=== PATIENT | male | born 1955 | race Caucasian/White ===

== ENCOUNTER 2017-05-19 14:38 | Outpatient (RCR) | payer OTHER, SELFPAY ==
[2017-05-19 16:31] LABS: ALB/GLOB Ratio 1.1 RATIO (0.9-2.4); AST(SGOT) 30 U/L (15-37); Alanine Aminotransfer ALT/SGPT 33 U/L (12-78); Albumin, Serum 3.9 g/dL (3.4-5.0); Alkaline Phosphatase 71 U/L (45-117); Anion Gap 5 (5-15); BUN 22 mg/dL (7-18); BUN/Creat Ratio 22.2 RATIO (10-20); Calcium,Total 8.9 mg/dL (8.5-10.1); Chloride 103 mmol/L (98-107); Cholesterol 130 mg/dL (200); Creatinine, Serum 0.99 mg/dL (0.70-1.30); EST Glomerular Filtration Rate 81 mL/min (>60); Est Glom Filt Rate - Afr Amer 98 mL/min (>60); Globulin 3.7 g/dL (2.2-4.2); Glucose 163 mg/dL (70-110); High Density Lipoprotein 29 mg/dL; Potassium 4.1 mmol/L (3.5-5.1); Protein, Total 7.6 g/dL (6.4-8.2); Sodium Level 138 mmol/L (136-145); Triglycerides 412 mg/dL; Uric Acid 4.3 mg/dL (3.5-7.2)
== END 2017-05-19 15:00 | disposition home or self-care (01) ==
LOC: LAB 14:38
PROVIDERS: Family Provider Preventive Medicine Occupational Medicine; PCP Preventive Medicine Occupational Medicine; Visit Provider Internal Medicine Cardiovascular Disease
DX: I10 Essential (primary) hypertension (principal); E78.5 Hyperlipidemia, unspecified; Z12.5 Encounter for screening for malignant neoplasm of prostate; Z87.442 Personal history of urinary calculi
CPT/HCPCS: 36415; 80053; 80061; 84550

== ENCOUNTER 2017-07-23 11:38 | Outpatient (RCR) | payer OTHER, SELFPAY ==
[2017-07-23 12:28] LABS: International Normalized Ratio 3.9
[2017-07-23 12:33] LABS: Cholesterol 138 mg/dL (200); High Density Lipoprotein 34 mg/dL; Triglycerides 242 mg/dL; Very Low Density Lipoprotein 48 mg/dL (5-40)
[2017-07-23 12:50] LABS: Prothrombin Time (Protime)PT. 38.5 SECONDS (11.7-14.9)
== END 2017-07-23 12:00 | disposition home or self-care (01) ==
LOC: LAB 11:38
PROVIDERS: Family Provider Preventive Medicine Occupational Medicine; PCP Preventive Medicine Occupational Medicine; Visit Provider Internal Medicine Cardiovascular Disease
DX: E78.5 Hyperlipidemia, unspecified (principal); Z79.01 Long term (current) use of anticoagulants; Z95.2 Presence of prosthetic heart valve
CPT/HCPCS: 80061; 85610

== ENCOUNTER 2017-11-01 13:43 | Outpatient (RCR) | payer OTHER, SELFPAY ==
[2017-11-01 15:06] LABS: International Normalized Ratio 3.2
== END 2017-11-01 15:00 | disposition home or self-care (01) ==
LOC: LAB 13:43
PROVIDERS: Physician Assistant Medical; Family Provider Preventive Medicine Occupational Medicine; PCP Preventive Medicine Occupational Medicine; Visit Provider Internal Medicine Cardiovascular Disease
DX: Z79.01 Long term (current) use of anticoagulants (principal)
CPT/HCPCS: 36415; 85610

== ENCOUNTER 2018-02-06 09:21 | Day surgery (SDC) | payer MEDICARE, OTHER, SELFPAY ==
--- NOTE | 2018-02-02 09:18 | EKG12_ITS ---
Test Reason : PRE OP Blood Pressure : / mmHG Vent. Rate : 068 BPM Atrial Rate : 068 BPM P-R Int : 194 ms QRS Dur : 092 ms QT Int : 388 ms P-R-T Axes : 062 -32 069 degrees QTc Int : 412 ms Normal sinus rhythm Possible Left atrial enlargement Left axis deviation Abnormal ECG Confirmed by KENDALL LEVINE, GUSTAVO ([id number]), deputy editor in chief ESTELA COVARRUBIAS ([id number]) on 02/06/2018 3:50:14 PM Referred By: Aayush Carnes Confirmed By:GUSTAVO ARGUETA MD
[2018-02-02 09:41] LABS: Hematocrit 44.4 % (40-54); Hemoglobin 15.1 g/dl (13.0-16.5); Mean Corpuscular Hgb 30.4 pg (27.0-32.0); Mean Corpuscular Volume 89.5 fL (80-94); Mean Platelet Vol. 10.3 fl (6.2-12.0); Platelet Count 176 K/mm3 (150-450); RBC Distribution Width CV 13.6 % (11.6-14.6); RBC Distribution Width SD 44.2 fl (35.1-43.9); Red Blood Count 4.96 M/mm3 (4.6-6.2); White Blood Count 5.9 K/mm3 (4.4-11.0)
[2018-02-02 09:43] LABS: Scan Indicated on CBC? Y/N NO
[2018-02-02 10:10] LABS: Anion Gap 8 (5-15); BUN 24 mg/dL (7-18); BUN/Creat Ratio 22.4 RATIO (10-20); Calcium,Total 9.3 mg/dL (8.5-10.1); Chloride 100 mmol/L (98-107); Creatinine, Serum 1.07 mg/dL (0.70-1.30); EST Glomerular Filtration Rate 74 mL/min (>60); Est Glom Filt Rate - Afr Amer 89 mL/min (>60); Glucose 283 mg/dL (74-106); Potassium 4.2 mmol/L (3.5-5.1); Sodium Level 135 mmol/L (136-145)
--- NOTE | 2018-02-06 | LES_PTH ---
PATIENT: PENG BAPTISTE LOC: [facility] U#:[id number] AGE/SX: 63/M ROOM: RE02/06/[address]: Dr. Aayush Carnes MD : [id number] BED: DIS: 02/06/2018 SPEC #: [id number] RECD: 02/06/18 14:11 STATUS: CIRA PHILLIP #: [id number] TODD: 02/06/18 00:[address]: Aayush Carnes DEPT: SURGICAL PATHOLOGY RECD BY: Caroline Mims ENTERED: 02/06/18 14:43 SP TYPE: Lesion OTHR DR: Dr. Benjamin Guzman DO Tissues: A - Skin of external ear, NOS B - Skin of external ear, NOS Procedures: Frozen Section (charge) Frozen Section Add'l ([facility]) Surgery Specimen Level IV Frozen (no charge) Comments: @ Specimen number changed from [id number] to [id number] @ on 02/07/18 at 0748 by RGOOD. HEADER OPERATION: Excision lesion, ear, frozen section PRE-OP DIAGNOSIS: Basal cell carcinoma left ear TISSUE SUBMITTED: A - Lesion left ear helix, long suture - posterior, short suture - inferior, frozen section sent at 1405, B - Additional inferior margin left ear for permanent FROZEN SECTION DIAGNOSIS A. Lesion left ear helix, biopsy: Basal cell carcinoma, completely excised. SJ:luis 02/07/18 MICROSCOPIC DIAGNOSIS A. Lesion left ear helix, excision: Basal cell carcinoma, completely excised. Solar elastosis. See comment. B. Additional inferior margin, left ear, biopsy: Negative for carcinoma. Mild chronic inflammation. See comment. COREY:luis 02/08/18 COMMENT A . Cartilage is also noted in the submitted specimen and not involved by the tumor.. B. Cartilage is also noted in the submitted specimens. Case has been reviewed in consultation with Dr. Monique who concurs with the above diagnosis. IDC:AM MICROSCOPIC DESCRIPTION Slides are reviewed. GROSS DESCRIPTION A - Received fresh for frozen section diagnosis labeled with the patient's name is a specimen designated lesion left ear helix. The specimen consists of a wedge-shaped piece of cruz-white skin measuring 2.3 x 1.3 x 0.8 cm. The specimen is oriented as follows: long stitch - posterior, short stitch - inferior. The specimen is inked as follows: posterior - black, anterior - blue, inferior - yellow, superior - green/orange. The specimen is longitudinally sectioned and submitted entirely for frozen section diagnosis in two cassettes. / :luis 02/06/18 B - Received in fixative is one container labeled with the patient's name and designated additional inferior margin left ear. The specimen consists of a wedge-shaped piece of cruz-white skin measuring 2 x 1 x 0.7 cm. The specimen is inked, serially sectioned and submitted entirely in one cassette. / SJ:luis 02/07/18 TC:0 CPT: 24657 x2, 85788, 76845
[2018-02-06 10:26] VITALS: BP 130/75; PULSE 69; RESP 16; TEMP 36.6; O2SAT 96; BMI 43.8
[2018-02-06 10:46] LABS: Bedside Glucose 192 mg/dL (70-110)
--- NOTE | 2018-02-06 13:45 | DCINST_ITS ---
You will use the following diet at home:: Regular Discharge Activity: Return to Normal Activity Additional Activity Instructions:: Remove dressing tomorrow and discard. Apply antibiotic ointment to the sutures three times per day. Keep the ear dry until Tuesday. Allergies/Adverse Reactions: Allergies fentanyl Allergy (Verified 01/31/18 10:13) HALLUCINATIONS/VERY CONFUSED niacin Allergy (Verified 01/31/18 09:58) SWEATY,AND REAL HOT Penicillins Allergy (Verified 01/31/18 09:58) Unknown Medications to take at Discharge allopurinol 300 mg tablet 300 mg PO QDAY 05/20/17 coenzyme Q10 200 mg capsule 200 mg PO BID cap 05/20/17 magnesium oxide 400 mg (241.3 mg magnesium) tablet 400 mg PO QDAY tab 05/20/17 amlodipine 10 mg tablet 10 mg PO QDAY #90 tab 01/24/18 enoxaparin 120 mg/0.8 mL subcutaneous syringe 120 mg SC Q12H #10 dose 01/24/18 hydrochlorothiazide 25 mg tablet 25 mg PO QDAY #90 tab 01/24/18 lisinopril 40 mg tablet 40 mg PO BID #180 tab 01/24/18 metoprolol succinate ER 200 mg tablet,extended release 24 hr 100 mg PO BID #90 tab 01/24/18 pravastatin 40 mg tablet 40 mg PO QHS #90 tab 01/24/18 Warfarin [Coumadin ([facility])] 5 mg PO FR 01/31/18 Warfarin [Coumadin ([facility])] 8 mg PO SUMOTUWETHSA 01/31/18 Primary Care Physician: Benjamin Guzman DO [Primary Care Provider] - Test Results: Test results from this visit will be discussed in further detail at your follow- up appointment, if applicable.
[2018-02-06 13:55] VITALS: BP 111/68; BP 130/75; PULSE 65; RESP 16; TEMP 36.3; O2SAT 92
[2018-02-06] MEDS: Bacitracin 500 UNITS/GM PACKET (14:30)
[2018-02-06 15:37] VITALS: BP 102/45; BP 130/75; PULSE 70; RESP 16; TEMP 36.4; O2SAT 92
[2018-02-06 15:45] VITALS: BP 104/58; BP 130/75; PULSE 68; RESP 16; O2SAT 94
[2018-02-06 15:50] VITALS: BP 102/67; BP 130/75; PULSE 70; RESP 16; O2SAT 94
--- NOTE | 2018-02-06 15:55 | OP.PCM_ITS ---
Report of Operation Date of Procedure: 02/06/18 Pre-Operative Diagnosis: basal cell carcinoma left ear Post-Operative Diagnosis: same Surgery/Procedure Performed:: Excision left ear basal cell carcinoma. (size of defect 2.3x1.2 cm). Local advancement flap reconstruction (helical advancement flap) Description of Surgical Findings:: frozen section with clear margins Type of Anesthesia:: Local MAC Anesthesiologist: Shayan Evans Specimen's removed: as above Estimated Blood Loss (mL): minimal Description of Procedure: The patient was taken to the operating room on 02/06/18. He was placed in the supine position on the OR table. The left ear was was prepped and draped steriley. 1% lidocaine with epinephrine (1:804160) was injected around the lesion and along the helix on the medial and lateral side. Next, I measured 5 mm margins on each side. I incised the skin with a 15 blade at the margins and carried this down through the cartilage of the helix. Next, I used an 11 blade to make through and through full thickness cuts beneath the lesion, thus removing the helical rim with the specimen. The lesion was marked for orientation with sutures. Next hemostasis was achieved with bipolar cautery. I then made a back cut (full thickness) with an 11 blade to the lobule so as to isolate the helical rim for advancement. I also made a full thickness incision with an 11 blade to the helical root. Next, I removed a W of cartilage and skin with an 11 blade to shorten the anterior posterior dimension of the ear. Hemostasis was achieved with bipolar cautery. I then irrigated the ear with saline. The frozen section had come back with clear margins at this time. Next, I re approximated the W incision and closed this with 4-0 Vicryl. The helical root was advanced and the cartilage was closed with interrupted 4-0 Vicryl. The helical rim was advanced and tacked to the root to re create an intact helical rim. Next, the helical rim was closed by sewing the cartilage to the helical advancement flap rim. The skin was closed posteriorly/medially with a running 6-0 nylon. The skin was closed laterally/anteriorly with a combination of running and interrupted 6-0 Nylon. Bacitracin was applied. A [place] dressing was applied. The patient was then awoken and brought to the recovery room in stable condition. Blood loss minimal, replacement none. Sponge, needle and instrument count were correct at the end of the procedure.
[2018-02-06 16:18] VITALS: BP 130/75
== END 2018-02-06 16:25 | disposition home or self-care (01) ==
LOC: SDC 09:23 → AC 10:07
PROVIDERS: Family Provider Preventive Medicine Occupational Medicine; PCP Preventive Medicine Occupational Medicine; Referring Provider Otolaryngology; Visit Provider Otolaryngology
DX: C44.219 Basal cell carcinoma of skin of left ear and external auricular canal (principal); I10 Essential (primary) hypertension; E78.00 Pure hypercholesterolemia, unspecified; I25.10 Atherosclerotic heart disease of native coronary artery without angina pectoris; H95.41 Postprocedural hemorrhage of ear and mastoid process following a procedure on the ear and mastoid process; Z95.2 Presence of prosthetic heart valve; Z87.891 Personal history of nicotine dependence; Z79.01 Long term (current) use of anticoagulants; Z79.891 Long term (current) use of opiate analgesic; Z79.899 Other long term (current) drug therapy
CPT/HCPCS: 00300; 14060; 36415; 80048; 82962; 85027; 85610; 88305; 88331; 88332; 93005; 99283; J7120

== ENCOUNTER 2018-02-06 23:15 | Emergency (ER) | payer MEDICARE, OTHER, SELFPAY ==
[2018-02-06 23:16] VITALS: BP 133/83; PULSE 70; RESP 16; TEMP 36.7; O2SAT 98; BMI 44.9
[2018-02-07 00:20] LABS: International Normalized Ratio 1.4
--- NOTE | 2018-02-07 00:42 | ED.VIS.GEN ---
History of Present Illness Chief Complaint: Ear Problem Informant: Patient Onset: Today Context: Gradual Onset - after ear surgery Timing: Continuous Quality: oozing/bleeding Location: left ear/pinna Current Severity: Moderate Maximum Severity: Moderate Worsened by: nothing Relieved by: nothing Associated Symptoms: none Narrative: Had a skin lesion excised from his left ear earlier today, he is on Coumadin for mechanical heart valve and had discontinued it for a couple days prior to surgery, and today according to his surgical orderly, he is to go back on Lovenox post surgery, as well as his Coumadin. He has been bleeding uncontrollably from his surgical incisions. He has had minimal pain. - Past Medical History (1) Atherosclerosis of coronary artery of [place] heart without angina pectoris Status: Chronic Comment: S/P CABG with reverse SVG to PDA in June 2008; (2) History of aortic valve replacement with metallic valve Status: Chronic Comment: S/P 27mm [place] in June 2008; (3) Hx of CABG Status: Chronic Comment: S/P CABG x1 with reverse SVG to PDA in June 2008; (4) Hx of repair of dissecting thoracic aortic aneurysm, Tomy type A Status: Chronic Comment: Replacement of ascending aorta w/ 28 mm graft and aortic root replacement with coronary reimplantation and a [address] [place] Valve and CABG X 1 SVG-PDA (5) Hyperlipidemia Status: Chronic (6) Hypertension Status: Chronic Past Medical History - Allergies and Home Meds Allergies/Adverse Reactions: Allergies fentanyl Allergy (Verified 02/06/18 23:20) HALLUCINATIONS/VERY CONFUSED niacin Allergy (Verified 02/06/18 23:20) SWEATY,AND REAL HOT Penicillins Allergy (Verified 02/06/18 23:20) Unknown Primary Care Physician: Benjamin Guzman DO [Primary Care Provider] - Surgical History: coronary bypass surgery, - - Thoracic aorta Lives: Spouse/ Significant Other Smoking Status: Former smoker Review of Systems General: Denies: Chills, Fever ENT: Reports: Left ear pain - And bleeding Cardiovascular: Denies: Chest pain, Palpitations Respiratory: Denies: Dyspnea, Cough Physical Exam Vital Signs/Narrative: Vital Signs Temp Pulse Resp BP Pulse Ox 02/06/18 23:16 98.1 F 70 16 133/83 H 98 Inital Vital Signs reviewed: Yes General: Well nourished, Well developed, - - nad Head: Normocephalic, Atraumatic ENT: Moist mucous membranes, No rhinorrhea, - - Left ear superior pinna incisions anteriorly and posteriorly continuously mildly oozing dark red blood, no pulsatile bleeding, no auricular hematoma. Some blood with a small clot within the external auditory canal but not deep. His dressing is saturated. Mild tenderness. No signs of infection. No signs of surgical wound dehiscence. Respiratory: No distress Skin: Normal color, No rash Neurological: Alert, Oriented x3, Cranial nerves II-XII grossly intact, Normal Strength, Normal Sensation Psychological: Normal affect Diagnostic/Tx/Re-eval - Medical Decision Making Surgicel strips were placed against the incisions, followed by ABD pad, gauze, and an Compa wrap gently around his neck/head. He tolerated this well, there was no bleeding through. He was observed for a while. INR is 1.4. He was advised to this, but reassured since he is on Lovenox, which is likely why he is having significant postoperative bleeding from his ear. Per his surgical orderly, he is advised to continue this and follow with them for further suggestions and to follow-up with ENT by phone in the morning for further instructions. ED Disposition - Plan for ED Patient: Disposition: Home or Assisted Living Chief Complaint: Ear Problem Diagnosis: Postoperative hemorrhage of ear following procedure on ear Instructions: ED Wound Check Post Op Bleeding Referrals: Benjamin Guzman DO [Primary Care Provider] - Aayush Carnes MD [STAFF PHYSICIAN] - 1 Day Additional Instructions: Keep tabs with your surgical orderly regarding instructions for Lovenox and Coumadin
--- NOTE | 2018-02-07 00:46 | ED.DCSUM_ITS ---
History of Present Illness Chief Complaint: Ear Problem Informant: Patient Onset: Today Context: Gradual Onset - after ear surgery Timing: Continuous Quality: oozing/bleeding Location: left ear/pinna Current Severity: Moderate Maximum Severity: Moderate Worsened by: nothing Relieved by: nothing Associated Symptoms: none Narrative: Had a skin lesion excised from his left ear earlier today, he is on Coumadin for mechanical heart valve and had discontinued it for a couple days prior to surgery, and today according to his pinmaker, he is to go back on Lovenox post surgery, as well as his Coumadin. He has been bleeding uncontrollably from his surgical incisions. He has had minimal pain. - Past Medical History (1) Atherosclerosis of coronary artery of [place] heart without angina pectoris Status: Chronic Comment: S/P CABG with reverse SVG to PDA in June 2008; (2) History of aortic valve replacement with metallic valve Status: Chronic Comment: S/P 27mm [facility] in June 2008; (3) Hx of CABG Status: Chronic Comment: S/P CABG x1 with reverse SVG to PDA in June 2008; (4) Hx of repair of dissecting thoracic aortic aneurysm, Tomy type A Status: Chronic Comment: Replacement of ascending aorta w/ 28 mm graft and aortic root replacement with coronary reimplantation and a [address] [place] Valve and CABG X 1 SVG-PDA (5) Hyperlipidemia Status: Chronic (6) Hypertension Status: Chronic Past Medical History - Allergies and Home Meds Allergies/Adverse Reactions: Allergies fentanyl Allergy (Verified 02/06/18 23:20) HALLUCINATIONS/VERY CONFUSED niacin Allergy (Verified 02/06/18 23:20) SWEATY,AND REAL HOT Penicillins Allergy (Verified 02/06/18 23:20) Unknown Primary Care Physician: Benjamin Guzman DO [Primary Care Provider] - Surgical History: coronary bypass surgery, - - Thoracic aorta Lives: Spouse/ Significant Other Smoking Status: Former smoker Review of Systems General: Denies: Chills, Fever ENT: Reports: Left ear pain - And bleeding Cardiovascular: Denies: Chest pain, Palpitations Respiratory: Denies: Dyspnea, Cough Physical Exam Vital Signs/Narrative: Vital Signs Temp Pulse Resp BP Pulse Ox 02/06/18 23:16 98.1 F 70 16 133/83 H 98 Inital Vital Signs reviewed: Yes General: Well nourished, Well developed, - - nad Head: Normocephalic, Atraumatic ENT: Moist mucous membranes, No rhinorrhea, - - Left ear superior pinna incisions anteriorly and posteriorly continuously mildly oozing dark red blood, no pulsatile bleeding, no auricular hematoma. Some blood with a small clot within the external auditory canal but not deep. His dressing is saturated. Mild tenderness. No signs of infection. No signs of surgical wound dehiscence. Respiratory: No distress Skin: Normal color, No rash Neurological: Alert, Oriented x3, Cranial nerves II-XII grossly intact, Normal Strength, Normal Sensation Psychological: Normal affect Diagnostic/Tx/Re-eval - Medical Decision Making Surgicel strips were placed against the incisions, followed by ABD pad, gauze, and an Compa wrap gently around his neck/head. He tolerated this well, there was no bleeding through. He was observed for a while. INR is 1.4. He was advised to this, but reassured since he is on Lovenox, which is likely why he is having significant postoperative bleeding from his ear. Per his pinmaker, he is advised to continue this and follow with them for further suggestions and to follow-up with ENT by phone in the morning for further instructions. ED Disposition - Plan for ED Patient: Disposition: Home or Assisted Living Chief Complaint: Ear Problem Diagnosis: Postoperative hemorrhage of ear following procedure on ear Instructions: ED Wound Check Post Op Bleeding Referrals: Benjamin Guzman DO [Primary Care Provider] - Aayush Carnes MD [STAFF PHYSICIAN] - 1 Day Additional Instructions: Keep tabs with your pinmaker regarding instructions for Lovenox and Coumadin
== END 2018-02-07 00:55 | disposition home or self-care (01) ==
PROVIDERS: Emergency Provider Emergency Medicine; Family Provider Preventive Medicine Occupational Medicine; PCP Preventive Medicine Occupational Medicine
DX: Z79.01 Long term (current) use of anticoagulants (principal)
CPT/HCPCS: 36415; 85610

== ENCOUNTER 2018-02-13 14:22 | Outpatient (RCR) | payer OTHER, SELFPAY ==
[2018-02-03 10:54] LABS: International Normalized Ratio 3.4; Prothrombin Time (Protime)PT. 34.4 SECONDS (11.7-14.9)
[2018-02-08 10:44] LABS: International Normalized Ratio 1.6; Prothrombin Time (Protime)PT. 18.7 SECONDS (11.7-14.9)
[2018-02-13 17:36] LABS: International Normalized Ratio 2.3; Prothrombin Time (Protime)PT. 25.6 SECONDS (11.7-14.9)
== END 2018-02-23 11:19 | disposition home or self-care (01) ==
LOC: LAB 14:22
PROVIDERS: Family Provider Preventive Medicine Occupational Medicine; PCP Preventive Medicine Occupational Medicine; Visit Provider Internal Medicine Cardiovascular Disease
DX: Z79.01 Long term (current) use of anticoagulants (principal); Z95.4 Presence of other heart-valve replacement
CPT/HCPCS: 36415; 85610

== ENCOUNTER 2018-02-23 11:20 | Outpatient (RCR) | payer SELFPAY ==
[2018-02-23 13:33] LABS: International Normalized Ratio 2.9; Prothrombin Time (Protime)PT. 30.2 SECONDS (11.7-14.9)
== END 2018-03-27 10:56 | disposition home or self-care (01) ==
LOC: LAB 11:20
PROVIDERS: Family Provider Preventive Medicine Occupational Medicine; PCP Preventive Medicine Occupational Medicine; Referring Provider Internal Medicine Cardiovascular Disease; Visit Provider Internal Medicine Cardiovascular Disease
DX: Z95.4 Presence of other heart-valve replacement (principal); Z79.01 Long term (current) use of anticoagulants
CPT/HCPCS: 36415; 85610

== ENCOUNTER 2018-03-02 11:49 | Outpatient (RCR) | payer MEDICARE, OTHER, SELFPAY ==
[2018-03-02 13:24] LABS: Prothrombin Time (Protime)PT. 31.2 SECONDS (11.7-14.9)
== END 2018-03-27 10:57 | disposition home or self-care (01) ==
LOC: LAB 11:49
PROVIDERS: Family Provider Preventive Medicine Occupational Medicine; PCP Preventive Medicine Occupational Medicine; Referring Provider Internal Medicine Cardiovascular Disease; Visit Provider Internal Medicine Cardiovascular Disease
DX: Z95.4 Presence of other heart-valve replacement (principal); Z79.01 Long term (current) use of anticoagulants
CPT/HCPCS: 36415; 85610

== ENCOUNTER → 2018-03-27 08:56 | Outpatient (CLI) | payer MEDICARE, OTHER, SELFPAY ==
--- NOTE | 2018-03-27 08:59 | ECHOCS_ITS ---
Reason For Study: Valve Replacement Procedure This was a 2D Doppler, Color Flow transthoracic echocardiogram. Contrast injection was performed. Exam performed in department. Left Ventricle Normal LV size. Moderate concentric left ventricular hypertrophy. Left ventricular systolic function is normal. The estimated ejection fraction is 60 %. Stage 1 diastolic dysfunction. No regional wall motion abnormalities noted. Right Ventricle Normal RV size. Normal systolic function. Atria The left atrium is moderately enlarged. The right atrium is moderately enlarged. Mitral Valve Normal mitral valve. Tricuspid Valve Normal tricuspid valve. Mild (1+) tricuspid valve insufficiency. Pulmonary artery systolic pressure is 30 mmHg. Aortic Valve Peak aortic valve gradient 41 mmHg. Mean aortic valve gradient 17 mmHg. Mild to moderate aortic stenosis. Calculated aortic valve area (continuity equation) is 1.3 cm2. Great Vessels Normal aortic root. The pulmonary artery is normal size. Normal inferior vena cava. Pericardium/Pleural No pericardial effusion. Medication 22 gauge I.V. with prn adaptor inserted into right arm. Diluted definity 5ml given slow IV push to enhance endocardial definition. MMode/2D Measurements & Calculations LVIDd: 5.9 cm IVSd: 1.3 cm LVOT diam: 2.1 cm LVIDs: 3.6 cm LVPWd: 1.8 cm LVOT area: 3.5 cm2 FS: 39.5 % LA dimension: 6.0 cm LAV(MOD-sp4): 128.0 ml LA A4 area: 33.0 cm2 RA A4 area: 30.9 cm2 Time Measurements MV dec time: 0.20 sec Doppler Measurements & Calculations MV E max dax: 85.3 cm/sec Lat Peak E' Dax: 9.8 cm/sec Med Peak E' Dax: 8.0 cm/sec MV A max dax: 110.9 cm/sec E/E' lat: 8.7 E/E' med: 10.7 MV E/A: 0.77 MV V2 max: 131.0 cm/sec MV P1/2t max dax: 122.3 cm/sec Ao V2 max: 322.1 cm/sec MV max P.9 mmHg MV P1/2t: 82.0 msec Ao max P.5 mmHg MV V2 mean: 77.3 cm/sec MV dec slope: 436.8 cm/sec2 Ao V2 mean: 179.5 cm/sec MV mean P.8 mmHg Ao mean P.6 mmHg MV V2 VTI: 35.1 cm MVA(P1/2t): 2.7 cm2 Ao V2 VTI: 66.1 cm MVA(VTI): 2.9 cm2 BRAD(I,D): 1.5 cm2 BRAD(V,D): 1.3 cm2 LV V1 max: 116.7 cm/sec SV(LVOT): 101.5 ml PA V2 max: 155.0 cm/sec LV V1 max P.5 mmHg LV V1 mean P.9 mmHg LV V1 mean: 78.0 cm/sec LV V1 VTI: 28.6 cm TR max dax: 258.5 cm/sec TR max P.7 mmHg Interpretation Summary Normal LV size. Moderate concentric left ventricular hypertrophy. Left ventricular systolic function is normal. The estimated ejection fraction is 60 %. Stage 1 diastolic dysfunction. The left atrium is moderately enlarged. The right atrium is moderately enlarged. Contrast injection was performed. Ordering Physician: Iban Rider Referring Physician: Iban Rider Performed By: Gregorio Bee RCS
--- OUTSIDE RECORDS SUMMARY | 2018-05-20 11:11 | XMS RPT_ITS ---
:1955 Author Organization OHIP Support Name Relationship Address Phone DONELL BAPTISTE Unavailable [address] + [place] [address] R Unavailable Unavailable Unavailable BAPTISTE DONELL Unavailable [address] + [place] [address] R Unavailable Unavailable Unavailable BAPTISTE DONELL Unavailable [address] + [place] [address] R Unavailable Unavailable Unavailable BAPTISTE, DONELL Unavailable [address] + [place] [address] R Unavailable Unavailable Unavailable BAPTISTE, DONELL Unavailable [address] + [place] [address] R Unavailable Unavailable Unavailable BAPTISTE, DONELL Unavailable [address] + [place] [address] R Unavailable Unavailable Unavailable BAPTISTE, DONELL Unavailable [address] + [place] [address] R Unavailable Unavailable Unavailable BAPTISTE, DONELL Unavailable [address] + [place] [address] R Unavailable Unavailable Unavailable BAPTISTE, DONELL Unavailable [address] + [place] [address] R Unavailable Unavailable Unavailable BAPTISTE, DONELL Unavailable [address] + [place] [address] R Unavailable Unavailable Unavailable BAPTISTE, DONELL Unavailable [address] + [place] [address] R Unavailable Unavailable Unavailable BAPTISTE, DONELL Unavailable [address] + [place] [address] R Unavailable Unavailable Unavailable BAPTISTE, DONELL Unavailable [address] + [place] [address] R Unavailable Unavailable Unavailable ISABEL BAPTISTEET Unavailable [address] + [place] [address] R Unavailable Unavailable Unavailable ISABEL BAPTISTEET Unavailable [address] + [place] [address] R Unavailable Unavailable Unavailable ISABEL BAPTISTEET Unavailable [address] + [place] [address] R Unavailable Unavailable Unavailable Care Team Providers Name Role Phone MARIAH GUZMAN Attending Unavailable MEGAN, MARIAH Referring Unavailable MEGAN, MARIAH Primary Care Unavailable Butch, Yossi Attending Unavailable Megan, Mariah Primary Care Unavailable Butch, Yossi Referring Unavailable Harley Hernandez Consulting Unavailable Megan, Mariah Consulting Unavailable Katie Bella Attending Unavailable Butch, Oldhams Attending Unavailable Megan, Mariha Referring Unavailable Megan, Mariah Primary Care Unavailable Butch, Yossi Attending Unavailable Butch, Yossi Referring Unavailable Megan, Mariah Primary Care Unavailable Butch, Yossi Attending Unavailable Butch, Oldhams Referring Unavailable Megan, Mariah Primary Care Unavailable Megan, Mariah Attending Unavailable Megan, Mariah Primary Care Unavailable Iban Rider Attending Unavailable Megan, Mariah Referring Unavailable Butch, Oldhams Attending Unavailable Butch, Yossi Referring Unavailable Megan, Mariah Primary Care Unavailable Aayush Carnes Attending Unavailable Megan, Mariah Primary Care Unavailable Aayush Carnes Referring Unavailable Megan, Mariah Primary Care Unavailable LEIGHA HOWARD Attending Unavailable Butch, Yossi Attending Unavailable Butch, Oldhams Referring Unavailable Megan, Mariah Primary Care Unavailable Butch, Oldhams Attending Unavailable Aayush Carnes Referring Unavailable Butch, Yossi Attending Unavailable Butch, Yossi Referring Unavailable Megan, Mariah Primary Care Unavailable Iban Rider H Attending Unavailable Iban Rider Referring Unavailable Megan, Mariah Primary Care Unavailable Butch, Oldhams Attending Unavailable Butch, Oldhams Referring Unavailable Megan, Mariah Primary Care Unavailable Butch, Yossi Attending Unavailable Butch, Yossi Referring Unavailable Megan, Mariah Primary Care Unavailable PROBLEMS PROBLEMS DATE TYPE CONDITION / CODE ATTENDING STATUS SOURCE Unknown Z79.01 - intermediate Butch, Oldhams Active [place] [facility] (current) use of Community anticoagulants / Hospital Z79.01(ICD-10) Repository Unknown Z95.4 - Presence of Butch, Oldhams Active [place] 8 other heart-valve Community replacement / Hospital Z95.4(ICD-10) Repository Unknown R94.31 - Abnormal Butch, Oldhams Active [place] [facility] electrocardiogram Community [ECG] [EKG] / Hospital R94.31(ICD-10) [facility] [place] [facility] Atherosclerotic heart [facility] disease of [facility] coronary artery Repository without angina pectoris / I25.10(ICD-10) Unknown Z98.890 - [facility] [place] [facility] specified Community postprocedural states Hospital / Z98.890(ICD-10) Repository Unknown Z86.79 - Personal [facility] Active [place] 8 history of other [facility] diseases of the Hospital circulatory system / Repository Z86.79(ICD-10) Unknown I10 - Essential Bucth, Yossi Active [place] 8 (primary) hypertension Community / I10(ICD-10) Hospital Repository Unknown E78.5 - Butch, Yossi Active [place] [facility] Hyperlipidemia, Community unspecified / Hospital E78.5(ICD-10) Repository Unknown Z95.2 - Presence of Butch, Oldhams Active [place] [facility] prosthetic heart valve Community / Z95.2(ICD-10) Hospital Repository Admitting Dysuria / MEGAN, Active [facility] 8 Diagnosis R30.0(ICD-10) [facility] Repository PROCEDURES PROCEDURES No Procedure Records FoundRESULTS RESULTS ECHO, COMPLETE W/ Observed: 03/27/2018 Status: F Source: [place] CONTRAST 12:28 PM [facility] REPOSITORY [facility] Cardiovascular Services [address] [place] [address] Echo Complete W/ Contrast 03/27/18 0858 MR#: [id number] Acct: [id number] Name: PENG BAPTISTE Rep #: [id number] : 1955 63 From: Yossi Rae MD Attending Dr: Iban Rider NP Status: REG CLI Ordering Dr: Iban Rider VOCAL MUSIC TEACHER-C Date: 03/27/18 Location: [facility] Sex: M C Admitted: Reason For Study: Valve Replacement Procedure This was a 2D Doppler, Color Flow transthoracic echocardiogram. Contrast injection was performed. Exam performed in department. Left Ventricle Normal LV size. Moderate concentric left ventricular hypertrophy. Left ventricular systolic function is normal. The estimated ejection fraction is 60 %. Stage 1 diastolic dysfunction. No regional wall motion abnormalities noted. Right Ventricle Normal RV size. Normal systolic function. Atria The left atrium is moderately enlarged. The right atrium is moderately enlarged. Mitral Valve Normal mitral valve. Tricuspid Valve Normal tricuspid valve. Mild (1+) tricuspid valve insufficiency. Pulmonary artery systolic pressure is 30 mmHg. Aortic Valve Peak aortic valve gradient 41 mmHg. Mean aortic valve gradient 17 mmHg. Mild to moderate aortic stenosis. Calculated aortic valve area (continuity equation) is 1.3 cm2. Great Vessels Normal aortic root. The pulmonary artery is normal size. Normal inferior vena cava. Pericardium/Pleural No pericardial effusion. Medication 22 gauge I.V. with prn adaptor inserted into right arm. Diluted definity 5ml given slow IV push to enhance endocardial definition. MMode/2D Measurements AND Calculations LVIDd: 5.9 cm IVSd: 1.3 cm LVOT diam: 2.1 cm LVIDs: 3.6 cm LVPWd: 1.8 cm LVOT area: 3.5 cm2 FS: 39.5 % LA dimension: 6.0 cm LAV(MOD-sp4): 128.0 ml LA A4 area: 33.0 cm2 RA A4 area: 30.9 cm2 Time Measurements MV dec time: 0.20 sec Doppler Measurements AND Calculations MV E max dax: 85.3 cm/sec Lat Peak E' Dax: 9.8 cm/sec Med Peak E' Dax: 8.0 cm/sec MV A max dax: 110.9 cm/sec E/E' lat: 8.7 E/E' med: 10.7 MV E/A: 0.77 MV V2 max: 131.0 cm/sec MV P1/2t max dax: 122.3 cm/sec Ao V2 max: 322.1 cm/sec MV max P.9 mmHg MV P1/2t: 82.0 msec Ao max P.5 mmHg MV V2 mean: 77.3 cm/sec MV dec slope: 436.8 cm/sec2 Ao V2 mean: 179.5 cm/sec MV mean P.8 mmHg Ao mean P.6 mmHg MV V2 VTI: 35.1 cm MVA(P1/2t): 2.7 cm2 Ao V2 VTI: 66.1 cm MVA(VTI): 2.9 cm2 BRAD(I,D): 1.5 cm2 BRAD(V,D): 1.3 cm2 LV V1 max: 116.7 cm/sec SV(LVOT): 101.5 ml PA V2 max: 155.0 cm/sec LV V1 max P.5 mmHg LV V1 mean P.9 mmHg LV V1 mean: 78.0 cm/sec LV V1 VTI: 28.6 cm TR max dax: 258.5 cm/sec TR max P.7 mmHg Interpretation Summary Normal LV size. Moderate concentric left ventricular hypertrophy. Left ventricular systolic function is normal. The estimated ejection fraction is 60 %. Stage 1 diastolic dysfunction. The left atrium is moderately enlarged. The right atrium is moderately enlarged. Contrast injection was performed. Ordering Physician: Iban Rider Referring Physician: Iban Rider Performed By: Gregorio Bee RCS 03/27/188 Date Yossi Rae MD CC: SHAYLA Guzman DO Date Dictated: 03/27/18 0858 Date Transcribed: 03/27/181227 Plasma Processing Centrifuge Operator: Signed PROTHROMBIN TIME W/INR Collected: 03/02/2018 Status: F Source: [place] 11:56 AM [facility] REPOSITORY TYPE CODE TESTS RESULT OUT OF RANGE REFERENCE UNITS LAB L300.4150 11.7-14.9 SECONDS High PROTIME 31.2 LAB L300.4200 Normal INR 3.0 Performed By: #### L300.3900 #### [facility] [address] [place], [address] PROTHROMBIN TIME W/INR Collected: 02/23/2018 Status: F Source: [place] 11:23 AM [facility] REPOSITORY TYPE CODE TESTS RESULT OUT OF RANGE REFERENCE UNITS LAB L300.4150 11.7-14.9 SECONDS High PROTIME 30.2 LAB L300.4200 Normal INR 2.9 Performed By: #### L300.3900 #### [facility] [address] [place], [address] PROTHROMBIN TIME W/INR Collected: 02/13/2018 Status: F Source: [place] 2:24 PM [facility] REPOSITORY TYPE CODE TESTS RESULT OUT OF RANGE REFERENCE UNITS LAB L300.4150 11.7-14.9 SECONDS High PROTIME 25.6 LAB L300.4200 Normal INR 2.3 Performed By: #### L300.3900 #### [facility] [address] [facility] [place], [address] PROTHROMBIN TIME W/INR Collected: 02/08/2018 Status: F Source: [place] 9:56 AM [facility] REPOSITORY Order Comment: Comments: STANDING ORDER Comments: STANDING ORDER TYPE CODE TESTS RESULT OUT OF RANGE REFERENCE UNITS LAB L300.4150 11.7-14.9 SECONDS High PROTIME 18.7 LAB L300.4200 Normal INR 1.6 Performed By: #### L300.3900 #### [facility] [address] [place], [address] EMERGENCY DEPARTMENT Observed: 02/07/2018 Status: F Source: [place] SUMMARY 12:47 AM [facility] REPOSITORY [facility] Medical Records Department [address] [place] [address] Emergency Department Summary 02/07/18 0042 MR#: [id number] Acct: [id number] Name: PENG BAPTISTE Mike Rep #: [id number] : 1955 63 From: Leigha Howard MD PCP: Mariah Guzman DO Status: REG ER History of Present Illness Chief Complaint: Ear Problem Informant: Patient Onset: Today Context: Gradual Onset - after ear surgery Timing: Continuous Quality: oozing/bleeding Location: left ear/pinna Current Severity: Moderate Maximum Severity: Moderate Worsened by: nothing Relieved by: nothing Associated Symptoms: none Narrative: Had a skin lesion excised from his left ear earlier today, he is on Coumadin for mechanical heart valve and had discontinued it for a couple days prior to surgery, and today according to his solution developer, he is to go back on Lovenox post surgery, as well as his Coumadin. He has been bleeding uncontrollably from his surgical incisions. He has had minimal pain. - Past Medical History (1) Atherosclerosis of coronary artery of hoh heart without angina pectoris Status: Chronic Comment: S/P CABG with reverse SVG to PDA in June 2008; (2) History of aortic valve replacement with metallic valve Status: Chronic Comment: S/P 27mm St. Alberto in June 2008; (3) Hx of CABG Status: Chronic Comment: S/P CABG x1 with reverse SVG to PDA in June 2008; (4) Hx of repair of dissecting thoracic aortic aneurysm, Tomy type A Status: Chronic Comment: Replacement of ascending aorta w/ 28 mm graft and aortic root replacement with coronary reimplantation and a [address] Alberto Valve and CABG X 1 SVG-PDA (5) Hyperlipidemia Status: Chronic (6) Hypertension Status: Chronic Past Medical History - Allergies and Home Meds Allergies/Adverse Reactions: Allergies fentanyl Allergy (Verified 02/06/18 23:20) HALLUCINATIONS/VERY CONFUSED niacin Allergy (Verified 02/06/18 23:20) SWEATY,AND REAL HOT Penicillins Allergy (Verified 02/06/18 23:20) Unknown Primary Care Physician: Mariah Guzman DO [Primary Care Provider] - Surgical History: coronary bypass surgery, - - Thoracic aorta Lives: Spouse/ Significant Other Smoking Status: Former smoker Review of Systems General: Denies: Chills, Fever ENT: Reports: Left ear pain - And bleeding Cardiovascular: Denies: Chest pain, Palpitations Respiratory: Denies: Dyspnea, Cough Physical Exam Vital Signs/Narrative: Vital Signs 02/06/18 23:16 98.1 F 70 16 133/83 H 98 Inital Vital Signs reviewed: Yes General: Well nourished, Well developed, - - nad Head: Normocephalic, Atraumatic ENT: Moist mucous membranes, No rhinorrhea, - - Left ear superior pinna incisions anteriorly and posteriorly continuously mildly oozing dark red blood, no pulsatile bleeding, no auricular hematoma. Some blood with a small clot within the external auditory canal but not deep. His dressing is saturated. Mild tenderness. No signs of infection. No signs of surgical wound dehiscence. Respiratory: No distress Skin: Normal color, No rash Neurological: Alert, Oriented x3, Cranial nerves II-XII grossly intact, Normal Strength, Normal Sensation Psychological: Normal affect Diagnostic/Tx/Re-eval - Medical Decision Making Surgicel strips were placed against the incisions, followed by ABD pad, gauze, and an Compa wrap gently around his neck/head. He tolerated this well, there was no bleeding through. He was observed for a while. INR is 1.4. He was advised to this, but reassured since he is on Lovenox, which is likely why he is having significant postoperative bleeding from his ear. Per his solution developer, he is advised to continue this and follow with them for further suggestions and to follow-up with ENT by phone in the morning for further instructions. ED Disposition - Plan for ED Patient: Disposition: Home or Assisted Living Chief Complaint: Ear Problem Diagnosis: Postoperative hemorrhage of ear following procedure on ear Instructions: ED Wound Check Post Op Bleeding Referrals: Mariah Guzman DO [Primary Care Provider] - Aayush Carnes MD [STAFF PHYSICIAN] - 1 Day Additional Instructions: Keep tabs with your solution developer regarding instructions for Lovenox and Coumadin What to do if you have Problems For any increased pain, shortness of breath, bleeding, nausea or vomiting, chest pain, or any unexpected problems, contact your Primary Care Provider. Call [facility] ([phone]) or report to the closest Emergency Room. Call 911 if necessary. 02/07/18 0047 <Electronically signed by Leigha Howard MD> Date Leigha Howard MD Cosigner Signature (If Indicated): Date CC: Mariah Guzman DO PROTHROMBIN TIME W/INR Collected: 02/06/2018 Status: F Source: [place] 11:55 PM [facility] REPOSITORY TYPE CODE TESTS RESULT OUT OF RANGE REFERENCE UNITS LAB L300.4150 11.7-14.9 SECONDS High PROTIME 17.0 LAB L300.4200 Normal INR 1.4 Performed By: #### L300.3900 #### [facility] [address] [place], [address] OPERATIVE REPORT Observed: 02/06/2018 Status: F Source: [place] 3:56 PM [facility] REPOSITORY [facility] Medical Records Department [address] [facility] [place] [address] Operative Report 02/06/18 1544 MR#: [id number] Acct: [id number] Name: PNEG BAPTISTE Rep #: [id number] : 1955 63 From: Aayush Carnes MD PCP: Mariah Guzman DO Status: [facility] Y Location: [place] [address] Report of Operation Date of Procedure: 02/06/18 Pre-Operative Diagnosis: basal cell carcinoma left ear Post-Operative Diagnosis: same Surgery/Procedure Performed:: Excision left ear basal cell carcinoma. (size of defect 2.3x1.2 cm). Local advancement flap reconstruction (helical advancement flap) Description of Surgical Findings:: frozen section with clear margins Type of Anesthesia:: Local MAC Anesthesiologist: Shayan Evans Specimen's removed: as above Estimated Blood Loss (mL): minimal Description of Procedure: The patient was taken to the operating room on 02/06/18. He was placed in the supine position on the OR table. The left ear was was prepped and draped steriley. 1% lidocaine with epinephrine (1:186887) was injected around the lesion and along the helix on the medial and lateral side. Next, I measured 5 mm margins on each side. I incised the skin with a 15 blade at the margins and carried this down through the cartilage of the helix. Next, I used an 11 blade to make through and through full thickness cuts beneath the lesion, thus removing the helical rim with the specimen. The lesion was marked for orientation with sutures. Next hemostasis was achieved with bipolar cautery. I then made a back cut (full thickness) with an 11 blade to the lobule so as to isolate the helical rim for advancement. I also made a full thickness incision with an 11 blade to the helical root. Next, I removed a W of cartilage and skin with an 11 blade to shorten the anterior posterior dimension of the ear. Hemostasis was achieved with bipolar cautery. I then irrigated the ear with saline. The frozen section had come back with clear margins at this time. Next, I re approximated the W incision and closed this with 4-0 Vicryl. The helical root was advanced and the cartilage was closed with interrupted 4-0 Vicryl. The helical rim was advanced and tacked to the root to re create an intact helical rim. Next, the helical rim was closed by sewing the cartilage to the helical advancement flap rim. The skin was closed posteriorly/medially with a running 6-0 nylon. The skin was closed laterally/anteriorly with a combination of running and interrupted 6-0 Nylon. Bacitracin was applied. A Alexander dressing was applied. The patient was then awoken and brought to the recovery room in stable condition. Blood loss minimal, replacement none. Sponge, needle and instrument count were correct at the end of the procedure. 02/06/18 1556 <Electronically signed by Aayush Carnes MD> Date Aayush Carnes MD CC: Aayush Carnes MD; Mariah Guzman DO Signed 12 LEAD ELECTROCARDIOGRAM Observed: 02/06/2018 Status: F Source: [place] 3:50 PM [facility] REPOSITORY [facility] Cardiovascular Services [address] [place] [address] 12 Lead EKG 02/02/18 0931 MR#: [id number] Acct: [id number] Name: PENG BAPTISTE Rep #: [id number] : 1955 63 From: Yossi Rae MD Attending Dr: Aayush Carnes MD Status: REG [facility] Ordering Dr: Aayush Carnes MD Date: 02/02/18 Location: Sex: M C Admitted: Test Reason : PRE OP Blood Pressure : / mmHG Vent. Rate : 068 BPM Atrial Rate : 068 BPM P-R Int : 194 ms QRS Dur : 092 ms QT Int : 388 ms P-R-T Axes : 062 -32 069 degrees QTc Int : 412 ms Normal sinus rhythm Possible Left atrial enlargement Left axis deviation Abnormal ECG Confirmed by YOSSI RAE MD ([id number]), field map editor ESTELA COVARRUBIAS ([id number]) on 02/06/2018 3:50:14 PM Referred By: Aayush Carnes Confirmed By:YOSSI RAE MD 02/06/18 1550 Date Yossi Rae MD CC: Aayush Carnes MD; Mariah Guzman DO Signed DISCHARGE INSTRUCTION Observed: 02/06/2018 Status: F Source: [place] 1:45 PM [facility] REPOSITORY [facility] Medical Records Department [address] [place] [address] Instructions for Home/Discharge Instructions 02/06/18 1344 MR#: [id number] Acct: [id number] Name: PENG BAPTISTE Rep #: [id number] : 1955 63 From: Aayush Carnes MD PCP: Mariah Guzman DO Status: REG [facility] You will use the following diet at home:: Regular Discharge Activity: Return to Normal Activity Additional Activity Instructions:: Remove dressing tomorrow and discard. Apply antibiotic ointment to the sutures three times per day. Keep the ear dry until Tuesday. Allergies/Adverse Reactions: Allergies fentanyl Allergy (Verified 01/31/18 10:13) HALLUCINATIONS/VERY CONFUSED niacin Allergy (Verified 01/31/18 09:58) SWEATY,AND REAL HOT Penicillins Allergy (Verified 01/31/18 09:58) Unknown Medications to take at Discharge allopurinol 300 mg tablet 300 mg PO QDAY 05/20/17 coenzyme Q10 200 mg capsule 200 mg PO BID cap 05/20/17 magnesium oxide 400 mg (241.3 mg magnesium) tablet 400 mg PO QDAY tab 05/20/17 amlodipine 10 mg tablet 10 mg PO QDAY #90 tab 01/24/18 enoxaparin 120 mg/0.8 mL subcutaneous syringe 120 mg SC Q12H #10 dose 01/24/18 hydrochlorothiazide 25 mg tablet 25 mg PO QDAY #90 tab 01/24/18 lisinopril 40 mg tablet 40 mg PO BID #180 tab 01/24/18 metoprolol succinate ER 200 mg tablet,extended release 24 hr 100 mg PO BID #90 tab 01/24/18 pravastatin 40 mg tablet 40 mg PO QHS #90 tab 01/24/18 Warfarin [Coumadin ([facility])] 5 mg PO FR 01/31/18 Warfarin [Coumadin ([facility])] 8 mg PO SUMOTUWETHSA 01/31/18 Primary Care Physician: Mariah Guzman DO [Primary Care Provider] - Test Results: Test results from this visit will be discussed in further detail at your follow-up appointment, if applicable. 02/06/18 1345 <Electronically signed by Aayush Carnes MD> Date Aayush Carnes MD CC: Mariah Guzman DO BEDSIDE GLUCOSE Collected: 02/06/2018 Status: F Source: [place] 10:38 AM [facility] REPOSITORY TYPE CODE TESTS RESULT OUT OF REFERENCE UNITS RANGE LAB L501.080 70-110 mg/dL High BEDSIDE GLU 192 Result Comment: MANAGEMENT OF PATIENT CARE PER NURSING PROTOCOL Performed By: #### L501.080 #### [facility] Point of Care [address] [place] [address] LESION (CHOOSE SITE) Observed: 02/06/2018 Status: F Source: [place] 12:00 AM [facility] REPOSITORY Patient: PENG BAPTISTE : 1955 (63/M) Acct Num: [id number] Phys: Aayush Carnes MD Unit Num: [id number] Loc: [facility] Specimen: [id number] Received: 02/06/18 - 1411 Spec Type: Lesion TISSUES 1 TISSUES: A. Skin of external ear, NOS B. Skin of external ear, NOS COMMENT A . Cartilage is also noted in the submitted specimen and not involved by the tumor.. B. Cartilage is also noted in the submitted specimens. Case has been reviewed in consultation with Dr. Monique who concurs with the above diagnosis. IDC:AM FROZEN SECTION DIAGNOSIS A. Lesion left ear helix, biopsy: Basal cell carcinoma, completely excised. :luis 02/07/18 GROSS DESCRIPTION A - Received fresh for frozen section diagnosis labeled with the patient's name is a specimen designated lesion left ear helix. The specimen consists of a wedge-shaped piece of cruz-white skin measuring 2.3 x 1.3 x 0.8 cm. The specimen is oriented as follows: long stitch - posterior, short stitch - inferior. The specimen is inked as follows: posterior - black, anterior - blue, inferior - yellow, superior - green/orange. The specimen is longitudinally sectioned and submitted entirely for frozen section diagnosis in two cassettes. / :luis B - Received in fixative is one container labeled with the patient's name and designated additional inferior margin left ear. The specimen consists of a wedge-shaped piece of cruz-white skin measuring 2 x 1 x 0.7 cm. The specimen is inked, serially sectioned and submitted entirely in one cassette. / :luis TC:0 CPT: 84671 x2, 10201, 01359 HEADER OPERATION: Excision lesion, ear, frozen section PRE-OP DIAGNOSIS: Basal cell carcinoma left ear TISSUE SUBMITTED: A - Lesion left ear helix, long suture - posterior, short suture - inferior, frozen section sent at 1405, B - Additional inferior margin left ear for permanent MICROSCOPIC DESCRIPTION Slides are reviewed. MICROSCOPIC DIAGNOSIS A. Lesion left ear helix, excision: Basal cell carcinoma, completely excised. Solar elastosis. See comment. B. Additional inferior margin, left ear, biopsy: Negative for carcinoma. Mild chronic inflammation. See comment. :luis 02/08/18 Signed Rajeev Al 02/08/18 <signature on file> Performed By: #### PLES #### [facility] [address] [place], [address] PROTHROMBIN TIME W/INR Collected: 02/03/2018 Status: F Source: [place] 9:45 AM [facility] REPOSITORY TYPE CODE TESTS RESULT OUT OF RANGE REFERENCE UNITS LAB L300.4150 11.7-14.9 SECONDS High PROTIME 34.4 LAB L300.4200 Normal INR 3.4 Performed By: #### L300.3900 #### [facility] [address] [place], [address] CBC-COMPLETE BLOOD CNT Collected: 02/02/2018 Status: F Source: [place] NO DIFF 9:13 AM [facility] REPOSITORY TYPE CODE TESTS RESULT OUT OF RANGE REFERENCE UNITS LAB L100.1000 4.4-11.0 K/mm3 Normal WBC 5.9 LAB L100.1200 4.6-6.2 M/mm3 Normal RBC 4.96 LAB L100.1300 13.0-16.5 g/dl Normal HGB 15.1 LAB L100.1400 40-54 % Normal HCT 44.4 LAB L100.1500 80-94 fL Normal MCV 89.5 LAB L100.1600 27.0-32.0 pg Normal MCH 30.4 LAB L100.1700 32-36 g/gl Normal MCHC 34.0 LAB L100.1810 11.6-14.6 % Normal RDW CV 13.6 LAB L100.1820 35.1-43.9 fl High RDW SD 44.2 LAB L100.1900 150-450 K/mm3 Normal PLT 176 LAB L100.2000 6.2-12.0 fl Normal MPV 10.3 Performed By: #### L100.0500 #### [facility] [address] [place], [place], [address] BASIC METABOLIC Collected: 02/02/2018 Status: F Source: [place] PROFILE (BMP) 9:13 AM [facility] REPOSITORY TYPE CODE TESTS RESULT OUT OF RANGE REFERENCE UNITS LAB L501.0100 74-106 mg/dL High GLU 283 Result Comment: Glucose result greater than or equal to 200 mg/dL suggests DIABETES MELLITUS per A.D.A. criteria. Please note revised GLUCOSE reference range effective 2017. LAB L501.1000 7-18 mg/dL High BUN 24 LAB L501.1100 0.70-1.30 mg/dL Normal CREAT,SERUM 1.07 Result Comment: The validity of the calculated GFR AND GFRAA in patients over 70 years has not been determined. Clinical correlation is essential. LAB L501.1110 >60 mL/min Normal EST GFR 74 Result Comment: Non- GFR Calc LAB L501.1115 >60 mL/min Normal EST GFR - AA 89 Result Comment: GFR Calc LAB L501.1300 10-20 RATIO High BUN/CRE 22.4 LAB L501.2200 8.5-10.1 mg/dL CA Normal 9.3 LAB L501.5300 136-145 mmol/L Low NA 135 LAB L501.5600 3.5-5.1 mmol/L K Normal 4.2 LAB L501.5900 98-107 mmol/L CL Normal 100 LAB L501.6100 21.0-32.0 mmol/L Normal CO2 27.0 LAB L501.6200 5-15 Normal GAP 8 Performed By: #### L500.2500 #### [facility] [address] [place], [place], [address] CARDIOLOGY VISIT Observed: 11/23/2017 Status: F Source: [place] REPORT 4:34 PM [facility] REPOSITORY [facility] [address] [place] [address] OFFICE VISIT Date of Service: 11/22/17 MR#: [id number] Acct: [id number] Name: PENG BAPTISTE Rep #: [id number] : 1955 Provider: SHAYLA Rider Age/Sex: 62/M Location[place] [facility] [place] Status: Signed HPI HPI Details: PENG BAPTISTE, is a 62 M who presents to the office today for a follow-up visit. He is a gentleman with a history of coronary artery disease status post coronary bypass surgery in 2008 with a reverse SVG to PDA, aortic valve replacement with a [address] Alberto's aortic valve in 2008 as well as a type a aortic dissection status repair in 2008. Pt denies chest, arm, jaw, or neck discomfort. His exercise tolerance is stable. Pt denies symptoms of lightheadedness, dizziness, near syncopal or syncopal episodes. Pt denies edema or claudication issues. Pt. denies orthopnea, PND, fever, chills, blood in urine, blood in stool, myalgia, or unexplainable fatigue. He states noticing SOB when going up stairs that lasts for a few seconds and resolves on its own. He also states bilateral knee pain that results in a decrease in physical function. He states rare episodes of skipped beat at night. Intake Vital Signs11/22/17 Blood Pressure 134/76 Intake Visit Reasons: 4 M Manager Mechanical Required: No Accompanied by: None Is patient in pain?: No Allergies Penicillins Allergy (Verified 11/22/17 09:02) Unknown Medications allopurinol 300 mg tablet 300 mg PO QDAY 05/20/17 [History Confirmed 05/20/17] amlodipine 10 mg tablet 10 mg PO QDAY 05/20/17 [History Confirmed 05/20/17] coenzyme Q10 200 mg capsule 200 mg PO BID cap 05/20/17 [History Confirmed 05/20/17] hydrochlorothiazide 25 mg tablet 25 mg PO QDAY #90 tab 05/20/17 [Rx Confirmed 05/20/17] lisinopril 40 mg tablet 40 mg PO BID tab 05/20/17 [History Confirmed 05/20/17] magnesium oxide 400 mg tablet 400 mg PO QDAY tab 05/20/17 [History Confirmed 05/20/17] metoprolol succinate ER 200 mg tablet,extended release 24 hr 100 mg PO BID tab 05/20/17 [History Confirmed 05/20/17] pravastatin 40 mg tablet 40 mg PO QHS 05/20/17 [History Confirmed 05/20/17] warfarin 1 mg tablet 1 mg PO QDAY 05/20/17 [History Confirmed 11/01/17] warfarin 4 mg tablet 4 mg PO QDAY 05/20/17 [History Confirmed 11/01/17] warfarin 4 mg tablet 8 mg PO QDAY #180 tab 11/22/17 [Rx Confirmed 11/22/17] Ejection fraction %: 65 to 70 PFSH Medical History History of aortic valve replacement with metallic valve (Chronic) intermediate (current) use of anticoagulants (Chronic) Hyperlipidemia (Chronic) Atherosclerosis of coronary artery of hoh heart without angina pectoris (Chronic) Hypertension (Chronic) Ascending aortic dissection (Chronic) Surgical History Hx of CABG (Chronic) Hx of repair of dissecting thoracic aortic aneurysm, [place] type A (Chronic 07/12/08) H/O aortic valve replacement (Chronic 07/12/08) H/O arthroscopic knee surgery (Chronic) H/O coronary artery bypass surgery (Chronic 07/12/08) History of tonsillectomy (Resolved) Family History Mother CAD (coronary artery disease) Cancer Father CAD (coronary artery disease) Cancer Social History Smoking Status: Former smoker alcohol intake: current alcohol intake frequency: holidays/special occasions only caffeine: No ROS Const Const: Negative for weakness, difficulty sleeping, frequent falls, fatigue, excessive sweating or headache(s) Eyes Eyes: Negative for loss of peripheral vision, transient loss of vision, blurry vision or double vision ENT ENT: Negative for headache(s) or balance problems Cardio Chest Pain: No Palpitations: Yes Edema: None Muscle aches with walking: None Resp Respiratory: Negative for SOB with activity, SOB at rest, SOB orthopnea\SOB lying down or paroxysmal nocturnal dyspnea GI GI: Negative nausea or heartburn : Negative for hematuria Musc Musc: Positive for joint pain (bilateral knee pain); negative for muscle aches/ myalgia, muscle weakness or balance problems Skin Skin: Negative non-healing lesions, unusual bruising or rash Neuro Neuro: Negative for weakness, frequent falls, blurry vision, double vision or headache(s) Paul Hematologic/Lymphatic: Negative for easy bruising Endo Endo: Negative for fatigue or excessive sweating Psych Psych: Negative for anxiety or depression Allergy Allergy/Immunology: Negative for rash Cardiology Exam Const Appearance: cooperative, healthy appearing, well developed, well groomed and no acute distress Nutritional Appearance: well nourished and obese Orientation: alert, awake and oriented x3 Head Head: normal to inspection, normocephalic and atraumatic Ears: hearing grossly normal bilaterally and external ears normal Nose: external nose normal, nasal mucous membranes and turbinates normal, nares normal, septum normal, no nasal discharge Face and Sinus: face symmetric Mouth: oral mucosae normal, tongue normal, oropharynx normal and moist mucous membranes Teeth and gingiva: dentition normal Throat: posterior oropharynx normal, tonsils normal and uvula midline Eyes General: appearance normal, both eyes and all related structures Eyelids: eyelids normal Conjunctivae: conjunctivae normal Pupils: PERRL, normal by confrontation and accommodation normal EOM: EOM intact bilaterally Neck Neck: normal visual inspection, trachea midline and no JVD JVD: +5 Carotids: normal carotid upstroke and bounding pulses Chest Chest inspection: normal inspection of the chest, symmetric chest movement and normal respiratory effort Auscultation: Bilateral: Clear to Auscultation Cardio Palpation: normal PMI Rate: regular rate Rhythm: regular rhythm Heart sounds: S1 normal, crisp prosthetic S1 and crisp prosthetic S2 Murmur: Grade 1/6 and mid systolic GI GI: normal to inspection, soft, no hepatosplenomegaly, bowel sounds present and obese Neuro General: alert, awake, oriented x3, no focal sensory deficit, gait normal and moves all extremities Skin Skin: no rashes or lesions noted Extremities Pulses: Normal: Right Femoral Pulse, Left Femoral Pulse, Right Dorsalis Pedis Pulse, Left Dorsalis Pedis Pulse, Right Posterior Tibial Pulse, Left Posterior Tibial Pulse, Right Radial Pulse, Left Radial Pulse Lower Extremity Edema: None: Bilateral Musculoskel Musculoskeletal: No joint tenderness Psych Psychological: normal affect Supplemental Info CT scan with contrast in January 2017 showed stable aortic dissection arising from the aortic arch down through the thoracic aorta and visualized abdominal aorta. The dissection also extends in the left common carotid artery and in the left subclavian artery. There has been no change since the previous study. EKG from April 2014 show sinus rhythm at a rate of 60 bpm. Echocardiogram from April 2013 showed estimated ejection fraction 65%, bileaflet mechanical aortic valve, aortic valve area of 1.6 cm , mild enlarged left atrium, and when compared to previous study no changes. Assessment AND Plan 1. History of aortic valve replacement with metallic valve Z95.4 S/P 27mm St. Alberto in June 2008; Plan - ISSAC Darden Patient's echocardiogram in April 2013 showed an ejection fraction of 65%, aortic valve area 1.6 cm ,and was unchanged when compared to previous study. He will undergo a repeat echocardiogram to evaluate valvular status. He will continue with antibiotic prophylaxis. Further recommendation will be made after receiving results of echocardiogram. Orders Orders: 2. Hx of repair of dissecting thoracic aortic aneurysm, [place] type A Z98.890; Z86.79 Replacement of ascending aorta w/ 28 mm graft and aortic root replacement with coronary reimplantation and a [address] Alberto Valve and CABG X 1 SVG-PDA Plan - ISSAC Darden Patient's most recent CT scan in January 2017 showed stable aortic dissection arising from the aortic arch down to the thoracic aorta and visualized abdominal aorta with dissection extending into the left common carotid artery and left subclavian artery and no changes when compared to previous. He does express concerns regarding frequent radiation for evaluation of this. He feels he is too claustrophobic for MRI. We will continue to follow this and maintain adequate blood pressure and heart rate support. Orders Orders: 3. Atherosclerosis of hoh coronary artery of hoh heart without angina pectoris I25.10 S/P CABG with reverse SVG to PDA in June 2008; Jessica - ISSAC Darden Patient denies any chest pain, arm pain, jaw pain, neck pain, or fatigue suggestive of angina at this time. We will continue to monitor this. We will not make any medication regimen changes and will continue risk factor modification. Patient states that he is considering undergoing knee replacement surgery. He was asked that if he does proceed with this to contact our office so that a stress test can be done prior to surgery to evaluate status of bypass grafts. Orders Orders: 4. Hx of CABG Z95.1 S/P CABG x1 with reverse SVG to PDA in June 2008; Plan - ISSAC Darden He will continue current treatment plan as outlined above. 5. Essential hypertension I10 Plan - ISSAC Darden Patient blood pressure was initially elevated and upon recheck it normalized. He states at home and other doctor's offices it has ranged with systolics in the 120s. He will continue current medications and we will continue to monitor. He was instructed to contact office if he notices any increase in blood pressure. 6. Pure hypercholesterolemia E78.00; E78.0 Plan - ISSAC Darden His lipid panel from June 2017 show cholesterol: 138, HDL: 34, LDL: 56, and triglycerides: 242. He states this is being monitored by primary care physician. He will continue with current statin medication. 7. intermediate (current) use of anticoagulants Z79.01 Plan - ISSAC Darden He will continue with Coumadin therapy maintaining an INR goal of 2.5 3.5. If patient requires any surgical procedure in the future he will require bridging with Lovenox. Plan Detail Other Medications Changed: Additional Comments - ISSAC Darden Discussed the above patient with Dr. Rae, he agrees with the plan of care. Thank you for allowing us to participate in the patients plan of care, if you have any questions please do not hesitate to call. This note was generated using a voice recognition system and there may be incorrect words, spelling or punctuation that were not noted when reviewing the office note prior to saving. Follow Up 6 Months (SYSTEM OPERATOR) Coding Level of Care Code Off vis,est,level 3 Diagnoses History of aortic valve replacement with metallic valve Z95.4 Hx of repair of dissecting thoracic aortic aneurysm, Tomy type A Z98.890; Z86.79 Atherosclerosis of hoh coronary artery of hoh heart without angina pectoris I25.10 Coronary Disease-Associated Artery/Lesion type: hoh artery Hx of CABG Z95.1 Essential hypertension I10 Hypertension type: essential hypertension Pure hypercholesterolemia E78.00; E78.0 Hyperlipidemia type: pure hypercholesterolemia oil heaterman (current) use of anticoagulants Z79.01 Coding Level of Care Code Off vis,est,level 3 Diagnoses History of aortic valve replacement with metallic valve Z95.4 Hx of repair of dissecting thoracic aortic aneurysm, [place] type A Z98.890; Z86.79 Atherosclerosis of hoh coronary artery of hoh heart without angina pectoris I25.10 Coronary Disease-Associated Artery/Lesion type: hoh artery Hx of CABG Z95.1 Essential hypertension I10 Hypertension type: essential hypertension Pure hypercholesterolemia E78.00; E78.0 Hyperlipidemia type: pure hypercholesterolemia oil heaterman (current) use of anticoagulants Z79.01 11/22/17 1059 <Electronically signed by Iban DAVENPORT> Date Iban RUVALCABAC 11/23/17 1634<Electronically signed by oYssi Rae MD> Cosigner Signature: Date (if applicable) Yossi Rae MD CC: Mariah Guzman DO PROTHROMBIN TIME W/INR Collected: 11/01/2017 Status: F Source: [place] 1:49 PM [facility] REPOSITORY Order Comment: Order Date: 02/01/17 Order Info: 6301-6 - *PT/INR - Standing Order Comments: Standing Order-Reason: TYPE CODE TESTS RESULT OUT OF RANGE REFERENCE UNITS LAB L300.4150 11.7-14.9 SECONDS High PROTIME 33.0 LAB L300.4200 Normal INR 3.2 Performed By: #### L300.3900 #### [facility] [address] [place], [place], [address] LIPID PROFILE Collected: 07/23/2017 Status: F Source: [place] 11:48 AM [facility] REPOSITORY Order Comment: Comments: FASTING Comments: FASTING TYPE CODE TESTS RESULT OUT OF RANGE REFERENCE UNITS LAB L501.4900 200 mg/dL Normal CHOL 138 Result Comment: <200 mg/dL Desirable 200-240 mg/dL Borderline >240 mg/dL High Risk LAB L501.5000 mg/dL High TRIG 242 Result Comment: The drugs N-Acetylcysteine and Metamizole may falsely depress this assay. Serum Triglycerides Reference Interval Normal <150 mg/dL Borderline high 150 - 199 mg/dL High 200 - 499 mg/dL Very High > or = 500 mg/dL LAB L501.6400 mg/dL Low HDL 34 Result Comment: The drugs N-Acetylcysteine and Metamizole may falsely depress this assay. Reference Range HDL <40 mg/dL Low HDL Cholesterol HDL >or= 60 mg/dL High HDL Cholesterol LAB L501.6500 0-130 mg/dL Normal LDL 56 LAB L501.6600 5-40 mg/dL High VLDL 48 Performed By: #### L500.4100 #### [facility] [address] [place], [place], [address] PROTHROMBIN TIME W/INR Collected: 07/23/2017 Status: F Source: [place] 11:48 AM [facility] REPOSITORY Order Comment: Order Date: 03/21/17 Order Info: [id number] - *PT/INR - Standing Order Comments: Standing Order-Reason:Mechanical AVR, on Coumadin TYPE CODE TESTS RESULT OUT OF REFERENCE UNITS RANGE LAB L300.4150 11.7-14.9 SECONDS High PROTIME 38.5 Result Comment: RESULTS CALLED TO DR. RAE 07/23/17 1250 Angela Garibay. REPORT READ BACK BY SAME. LAB L300.4200 High alert INR 3.9 Performed By: #### L300.3900 #### [facility] [address] [place], [address] Observed: 07/06/2017 Status: F Source: [facility] 4:31 PM [facility] REPOSITORY . MICRO - Microbiology PROCEDURE: Urine Culture [*1] SOURCE: Urine, Clean Catch BODY SITE: COLLECTED DATE/TIME: 07/06/2017 16:31 EDT RECEIVED DATE/TIME: 07/06/2017 21:44 EDT START DATE/TIME: 07/06/2017 21:44 EDT FREE TEXT SOURCE: FINAL REPORTS Final Report [] Verified Date/Time/Personnel: 07/08/2017 07:21 EDT No growth at 48 hours. PRELIMINARY REPORTS Preliminary Report [] Verified Date/Time/Personnel: 07/07/2017 07:28 EDT No growth to date Performing Locations *1: This test was performed at: [facility], [address] [place] [address], [address] [place] [address] Performed By: #### CUR #### [place] [address] CARDIOLOGY VISIT Observed: 05/23/2017 Status: F Source: [place] REPORT 7:31 AM [facility] REPOSITORY [facility] [address] [place] [address] OFFICE VISIT Date of Service: 05/20/17 MR#: [id number] Acct: [id number] Name: PENG BAPTISTE Rep #: [id number] : 1955 Provider: Yossi Rae MD Age/Sex: 62/M Location: [facility] [place] Status: Signed HPI 6 M FU (we moved from 05-12-17): Chief Complaint: Follow-up visits. Details: PENG BAPTISTE, is a 62 M who presents to the office today for a follow-up visit. He is a gentleman with a history of coronary artery disease status post coronary bypass surgery in 1999 and 9 aortic valve replacement with a [address] Alberto's aortic valve as well as a type a aortic dissection. He continues to do well he denies any chest pain or shortness of breath or paroxysmal nocturnal dyspnea or pedal edema he has been compliant with all his medications. He has had no neck arm or jaw discomfort suggest angina. He has had no dizziness or diaphoresis no near syncope or syncope. He returns for routine follow-up visit. His major complaint is that he has not been able to lose any weight. He will try and make more attempts to do this. His physical exam today demonstrates clear lung richardson crisp prosthetic sounds regular rate and rhythm and no pedal edema. Intake Vital Signs05/20/17 Height 5 ft 11 in Intake Visit Reasons: 4 M FU (we moved from 05-12-17) Allergies Penicillins Allergy (Verified 05/20/17 09:17) Unknown Medications allopurinol 300 mg tablet 300 mg PO QDAY 05/20/17 [History Confirmed 05/20/17] amlodipine 10 mg tablet 10 mg PO QDAY 05/20/17 [History Confirmed 05/20/17] coenzyme Q10 200 mg capsule 200 mg PO BID cap 05/20/17 [History Confirmed 05/20/17] hydrochlorothiazide 25 mg tablet 25 mg PO QDAY #90 tab 05/20/17 [Rx Confirmed 05/20/17] lisinopril 40 mg tablet 40 mg PO BID tab 05/20/17 [History Confirmed 05/20/17] magnesium oxide 400 mg tablet 400 mg PO QDAY tab 05/20/17 [History Confirmed 05/20/17] metoprolol succinate ER 200 mg tablet,extended release 24 hr 100 mg PO BID tab 05/20/17 [History Confirmed 05/20/17] pravastatin 40 mg tablet 40 mg PO QHS 05/20/17 [History Confirmed 05/20/17] warfarin 1 mg tablet 1 mg PO QDAY 05/20/17 [History Confirmed 05/20/17] warfarin 4 mg tablet 4 mg PO QDAY 05/20/17 [History Confirmed 05/20/17] warfarin 4 mg tablet 4 mg PO QDAY #180 tab 05/20/17 [Rx Confirmed 05/20/17] [facility] Medical History Hyperlipidemia (Chronic) Atherosclerosis of coronary artery of hoh heart without angina pectoris (Chronic) Hypertension (Chronic) Ascending aortic dissection (Chronic) Surgical History Hx of repair of dissecting thoracic aortic aneurysm, [place] type A (Chronic 07/12/08) H/O aortic valve replacement (Chronic 07/12/08) H/O arthroscopic knee surgery (Chronic) H/O coronary artery bypass surgery (Chronic 07/12/08) Family History Mother CAD (coronary artery disease) Father CAD (coronary artery disease) Social History Smoking Status: Former smoker ROS Const Const: Negative for fatigue, weakness, difficulty sleeping, frequent falls, headache(s) or excessive sweating Eyes Eyes: Negative for loss of peripheral vision, transient loss of vision, blurry vision or double vision ENT ENT: Negative for headache(s), Negative for dizziness, Negative for Nosebleed/epistaxis, Negative for balance problems Cardio Chest Pain: No Edema: None, Bilateral Muscle aches with walking: None Resp Respiratory: Negative for SOB with activity, SOB at rest, SOB orthopnea\SOB lying down or paroxysmal nocturnal dyspnea GI GI: Negative nausea or heartburn : Negative for hematuria Musc Musc: Negative for muscle aches/ myalgia, muscle weakness, joint pain or balance problems Skin Skin: Negative non-healing lesions, unusual bruising or rash Neuro Neuro: Negative for weakness, Negative for frequent falls, Negative for blurry vision, Negative for headache(s), Negative for dizziness, Negative for lightheadedness, Negative for orthostatic symptoms, Negative for double vision Paul Hematologic/Lymphatic: Negative for easy bruising Endo Endo: Negative for fatigue, excessive sweating or increased thirst/drinking Psych Psych: Negative for anxiety or depression Allergy Allergy/Immunology: Negative for hives, Negative for rash Cardiology Exam Const Appearance: cooperative, healthy appearing, well developed, well groomed and no acute distress Nutritional Appearance: well nourished and average body habitus Orientation: alert, awake and oriented x3 Head Head: normal to inspection, normocephalic and atraumatic Ears: hearing grossly normal bilaterally and external ears normal Nose: external nose normal, nasal mucous membranes and turbinates normal, nares normal, septum normal, no nasal discharge Face and Sinus: face symmetric Mouth: oral mucosae normal, tongue normal, oropharynx normal and moist mucous membranes Teeth and gingiva: dentition normal Throat: posterior oropharynx normal, tonsils normal and uvula midline Eyes General: appearance normal, both eyes and all related structures Eyelids: eyelids normal Conjunctivae: conjunctivae normal Pupils: PERRL, normal by confrontation and accommodation normal EOM: EOM intact bilaterally Neck Neck: normal visual inspection, trachea midline and no JVD JVD: +5 Carotids: normal carotid upstroke and bounding pulses Chest Chest inspection: normal inspection of the chest, symmetric chest movement and normal respiratory effort Auscultation: Bilateral: Clear to Auscultation Cardio Palpation: normal PMI Rate: regular rate Rhythm: regular rhythm Heart sounds: S1 normal, crisp prosthetic S1 and crisp prosthetic S2 Murmur: Grade 1/6 and mid systolic GI GI: normal to inspection, soft, no hepatosplenomegaly and bowel sounds present Neuro General: alert, awake, oriented x3, no focal sensory deficit, gait normal and moves all extremities Skin Skin: no rashes or lesions noted Extremities Pulses: Normal: Right Femoral Pulse, Left Femoral Pulse, Right Dorsalis Pedis Pulse, Left Dorsalis Pedis Pulse, Right Posterior Tibial Pulse, Left Posterior Tibial Pulse, Right Radial Pulse, Left Radial Pulse Lower Extremity Edema: None: Bilateral Musculoskel Musculoskeletal: No joint tenderness Psych Psychological: normal affect Assessment AND Plan 1. History of aortic valve replacement with metallic valve Z98.890; Z95.4 Plan He is status post aortic valve replacement with a metallic valve in 2008 the above appears to be functioning quite well by auscultation. His last echocardiogram was almost 4 years ago at suggest that we obtain an echocardiogram to reevaluate the gradient across the aortic valve and assess for any perivalvular leak. He should continue antibiotic prophylaxis as per usual. He will continue anticoagulation maintaining an INR of 2.5-3.5. 2. Essential hypertension I10 Plan His blood pressure is under good control on the current medical therapy and at this time I would not suggest that we make any changes. He will remain on the beta-tata as well as the lisinopril amlodipine and the hydrochlorothiazide. 3. Hx of repair of dissecting thoracic aortic aneurysm, Tomy type A Z98.890; Z86.79 Replacement of ascending aorta w/ 28 mm graft and aortic root replacement with coronary reimplantation and a [address] Alberto Valve and CABG X 1 SVG-PDA Plan He did undergo a CAT scan of his chest with contrast. There was no change compared to the previous. The aortic root was noted to be stable with a dissection arising from the aortic arch down to the thoracic aorta. It also extends the left common carotid and the left subclavian was no change compared to the previous study. He will continue the same medications as well as surveillance. 4. S/P CABG x 1 Z95.1 Plan He is status post coronary bypass surgery with a single saphenous vein graft to posterior descending artery he has not had any angina and at this time I do not think this needs to be evaluated any further. No other changes will be made. Thank you for allowing me to participate in the care of your patient. Please don't hesitate to call if any issues arise 5. Hyperlipidemia E78.5 Plan He had a lipid profile performed yesterday with a total cholesterol 130 triglycerides of 412 and an HDL of 29. Unfortunately it was postprandial. I would recommend that he remain on the same medications and we repeat a lipid profile in 3 months. Orders Orders: Plan Detail Other Medications New: Discontinued: oxycodone-acetaminophen 5-325 mg Disconti1 - 2 tabs PO Q4H PRN PRN Pain Katie jeffries Reason: Pt no longer taking Follow Up 6 Months ([facility]) Coding Level of Care Code Off vis,est,level 4 Diagnoses History of aortic valve replacement with metallic valve Z98.890; Z95.4 Essential hypertension I10 Hypertension type: essential hypertension Hx of repair of dissecting thoracic aortic aneurysm, Tomy type A Z98.890; Z86.79 S/P CABG x 1 Z95.1 Hyperlipidemia E78.5 05/23/17 0731 <Electronically signed by Yossi Rae MD> Date Yossi Rae MD Cosigner Signature: Date (if applicable) CC: COMPREHENSIVE METABOLIC Collected: 05/19/2017 Status: F Source: [place] 2:48 PM [facility] REPOSITORY Order Comment: SEND RESULTS TO ALSO. TYPE CODE TESTS RESULT OUT OF RANGE REFERENCE UNITS LAB L501.0100 70-110 mg/dL High GLU 163 Result Comment: Fasting Glucose result greater than or equal to 126 mg/dL suggests DIABETES MELLITUS per A.D.A. criteria. LAB L501.1000 7-18 mg/dL High BUN 22 LAB L501.1100 0.70-1.30 mg/dL Normal CREAT,SERUM 0.99 Result Comment: The validity of the calculated GFR AND GFRAA in patients over 70 years has not been determined. Clinical correlation is essential. LAB L501.1110 >60 mL/min Normal EST GFR 81 Result Comment: Non- GFR Calc LAB L501.1115 >60 mL/min Normal EST GFR - AA 98 Result Comment: GFR Calc LAB L501.1300 10-20 RATIO High BUN/CRE 22.2 LAB L501.1500 6.4-8.2 g/dL T Normal PROT 7.6 LAB L501.1800 3.4-5.0 g/dL Normal ALB 3.9 Result Comment: Please note revised Albumin AND Globulin reference range effective 2017. LAB L501.1950 2.2-4.2 g/dL Normal GLOB 3.7 LAB L501.2000 0.9-2.4 RATIO Normal A/G 1.1 LAB L501.2200 8.5-10.1 mg/dL Normal CA 8.9 LAB L501.4100 15-37 U/L Normal AST 30 Result Comment: Slight Hemolysis, Result may be falsely increased. LAB L501.4305 45-117 U/L Normal ALK P 71 LAB L501.4405 12-78 U/L Normal ALT 33 LAB L501.4600 0.20-1.00 mg/dL Normal T BILI 0.70 LAB L501.5300 136-145 mmol/L Normal NA 138 LAB L501.5600 3.5-5.1 mmol/L Normal K 4.1 Result Comment: Slight Hemolysis, Result may be falsely increased. LAB L501.5900 98-107 mmol/L Normal CL 103 LAB L501.6100 21.0-32.0 mmol/L Normal CO2 30.0 LAB L501.6200 5-15 Normal 5 GAP Performed By: #### L500.4050, L500.4100, L501.1400 #### [facility] [address] [place], [place], [address] LIPID PROFILE Collected: 05/19/2017 Status: F Source: [place] 2:48 PM [facility] REPOSITORY Order Comment: SEND RESULTS TO DR.OFORI MCNAMARA. TYPE CODE TESTS RESULT OUT OF RANGE REFERENCE UNITS LAB L501.4900 200 mg/dL Normal CHOL 130 Result Comment: <200 mg/dL Desirable 200-240 mg/dL Borderline >240 mg/dL High Risk LAB L501.5000 mg/dL High TRIG 412 Result Comment: The drugs N-Acetylcysteine and Metamizole may falsely depress this assay. TRIGLYCERIDE IS GREATER THAN 400 mg/dL. LDL RESULT IS INVALID AND WILL NOT BE REPORTED. Serum Triglycerides Reference Interval Normal <150 mg/dL Borderline high 150 - 199 mg/dL High 200 - 499 mg/dL Very High > or = 500 mg/dL LAB L501.6400 mg/dL Low HDL 29 Result Comment: The drugs N-Acetylcysteine and Metamizole may falsely depress this assay. Reference Range HDL <40 mg/dL Low HDL Cholesterol HDL >or= 60 mg/dL High HDL Cholesterol LAB L501.6500 0-130 mg/dL Test Normal not performed LDL LAB L501.6600 5-40 mg/dL Test Normal not performed VLDL Performed By: #### L500.4050, L500.4100, L501.1400 #### [facility] [address] [place], [address] URIC ACID Collected: 05/19/2017 Status: F Source: [place] 2:48 PM [facility] REPOSITORY Order Comment: SEND RESULTS TO DR.OFORI MCNAMARA. TYPE CODE TESTS RESULT OUT OF RANGE REFERENCE UNITS LAB L501.1400 3.5-7.2 mg/dL Normal URIC 4.3 Result Comment: The drugs N-Acetylcysteine and Metamizole may falsely depress this assay. Performed By: #### L500.4050, L500.4100, L501.1400 #### [facility] [address] [place], [place], [address] ALLERGIES ALLERGIES DATE TYPE / CODE NAME / CODE REACTION SEVERITY SOURCE 02/06/2018 Drug Penicillins/ Unknown Unknown [facility] Allergy/4160 [id number]( Hospital 20013(SNOMED XNORM) Repository CT) 02/06/2018 Drug niacin/F0060 SWEATY,AND REAL Unknown [facility] Allergy/4160 96952([facility] 41453(SNOMED ) Repository CT) 02/06/2018 Drug fentanyl/F00 HALLUCINATIONS/V Unknown [facility] Allergy/4160 0249170([facility] 61015(SNOMED RM) Repository CT) ENCOUNTERS ENCOUNTERS ADMIT/DISCHARGE ACCOUNT NUMBER ADMITTING ENCOUNTER LOCATION SOURCE CLASS 03/27/[id number] [facility] ding:LAB Repository 03/27/[id number] [facility] ding:LAB Repository 03/27/[id number] [facility] ding:[facility] Repository 03/02/2018/03/27/20 [id number] Ambulatory [place] [address] ding:LAB Repository 02/23/2018/03/27/20 [id number] Ambulatory [address] ding:LAB Repository 02/13/2018/02/24/20 [id number] Ambulatory [address] ding:LAB Repository 02/06/2018/02/08/20 [id number] Emergency [place] ding:ED Repository 02/06/2018/02/07/20 [id number] Amb[place] ding:SDCRoom Repository : AC08 02/02/2018 [id number] Ambulatory BMSBuilding: [facility] Repository 11/22/2017/11/23/19 [id number] Ambulatory BMSBuilding: [place] [facility] Repository 11/01/2017/11/02/19 [id number] Ambulatory [address] ding:LAB Repository 11/01/[id number] [facility] ding:LAB.FUT Repository URE 07/23/2017/07/24/19 [id number] Ambulatory [place] [facility] ding:LAB Repository 07/06/2017/07/11/19 [id number] Ambulatory [address] ding:[facility] Repository 05/20/2017/05/20/19 [id number] Ambulatory BMSBuilding: [place] [facility] Repository 05/19/2017/05/19/19 [id number] Ambulatory [place] [facility] ding:LAB Repository 05/19/2017 [id number] Ambulatory BMSBuilding: [facility] Repository PAYERS PAYERS ENCOUNTER GUARANTOR PAYER SUBSCRIBER SOURCE 03/27/2018 PENG [id number] Primary PENG E FRYDOB: Jin GREEN[place]RIAR Insurance:MEDICARE [id number] [place] PART A BPolicy Number: Hospital [id number]: 330 [id number] Repository [phone] () Date:2018-02-23 03/27/2018 Secondary PENG E FRYDOB: Jin Insurance:MEDICOPolicy [id number] Community Number: [facility] [id number] Repository Date:9094-07-88XJ [address] [address]YZ: 03/27/2018 Tertiary NOT GIVENUNK [place] Insurance:SELF PAY [facility] Number: Effective Repository Date:2018-03-27 03/27/2018 PENG Mike [id number] Primary PENG E FRYDOB: Jin GREENBRIAR Insurance:MEDICARE [id number] [place] PART A BPolicy Number: Hospital [address]Avi: 330 [id number] Repository [phone] () Date:2018-03-02 03/27/2018 Secondary PENG E FRYDOB: Jin Insurance:MEDICOPolicy [id number] Community Number: [facility] [id number] Repository Date:1121-60-98YG [address] [place] [address]CS: 03/27/2018 Tertiary NOT GIVENUNK [place] Insurance:SELF PAY [facility] Number: Effective Repository Date:2018-03-27 03/27/2018 PENG [id number] Primary PENG VALENTINYDOB: Jin GRE[place]AR Insurance:MEDICARE [id number] [place] PART A BPolicy Number: Hospital [id number]: 330 [id number] Repository [phone] () Date:2017-11-22 03/27/2018 Secondary PENG VALENTINYDOB: [place] Insurance:MEDICOPolicy [id number] Community Number: Hospital [id number] Repository Date:4404-22-78KL [address] [address], [place] [address]JX: 03/27/2018 Tertiary NOT GIVENUNK [place] Insurance:SELF PAY Community [facility] Hospital Number: Effective Repository Date:2017-11-22 03/02/2018 PENG [id number] Primary PENG VALENTINYDOB: [place] Insurance:MEDICARE [id number] [place] PART A BPolicy Number: Hospital 13968Ems: 330 [id number] Repository [phone] () Date:2018-03-02 03/02/2018 Secondary PENG VALENTINYDOB: [place] Insurance:MEDICOPolicy [id number] Community Number: Hospital [id number] Repository Date:8339-91-05XK [address] [place] [address]BR: 03/02/2018 Tertiary NOT GIVENUNK [place] Insurance:SELF PAY Community [facility] Hospital Number: Effective Repository Date:2018-03-02 02/23/2018 PENG [id number] Primary Insurance:SELF NOT GIVENUNK [place] [facility] Effective Hospital [id number]: (330) Date:2018-02-23 Repository [phone] () 02/13/2018 PENG VALENTINY2626 Primary DONELL FRYDOB: [place] GRE[place] Insurance:SUMMA [id number] [place] CAREPolicy Number: Hospital [address]Fpv: 330 [id number] Repository [phone] (HP) Date:2967-28-99UK [address] [place] [address]LD: 02/13/2018 Secondary NOT GIVENUNK [place] Insurance:SELF PAY [facility] Number: Effective Repository Date:2017-11-24 02/06/2018 PENG E [id number] Primary PENG E FRYDOB: [place] Insurance[place]MEDICARE [id number] BPolicy Number: Hospital [id number]: 330 [id number] Repository [phone] (HP) Date:2018-02-06 02/06/2018 Secondary PENG E FRYDOB: [place] Insurance:MEDICOPolicy [id number] Community Number: Hospital [id number] Repository Date:5555-97-01NC [address] [address], [place] [address]VI: 02/06/2018 Tertiary NOT GIVENUNK [place] Insurance:SELF PAY Community [facility] Hospital Number: Effective Repository Date:2018-02-06 02/06/2018 PENG E [id number] Primary PENG E FRYDOB: [place] GRE[place] Insurance:MEDICARE [id number] [place] PART A BPolicy Number: Hospital [id number]: 330 [id number] Repository [phone] (HP) Date:2018-01-20 02/06/2018 Secondary PENG E FRYDOB: [place] Insurance:MEDICOPolicy [id number] Community Number: Hospital [id number] Repository Date:3343-56-56DB [address] [address] [address]BE: 02/06/2018 Tertiary NOT GIVENUNK [place] Insurance:SELF PAY Community [facility] Hospital Number: Effective Repository Date:2018-01-20 02/02/2018 PENG Mckeon [id number] Primary PENG E FRYDOB: [place] Insurance:MEDICARE [id number] PART [place] BPolicy Number: Hospital [id number]: 330 [id number] Repository [phone] (HP) Date:2018-01-20 02/02/2018 Secondary PENG E FRYDOB: [place] Insurance:MEDICOPolicy [id number] Community Number: Hospital [id number] Repository Date:7434-85-07YS [address] [address], [place] [address]NE: 02/02/2018 Tertiary NOT GIVENUNK [place] Insurance:SELF PAY [facility] Number: Effective Repository Date:2018-02-02 11/22/2017 PENG Mckeon [id number] Primary DONELL FRYDOB: [place] [facility] [id number] C[place] Number: Hospital [address]Wby: 330 [id number] Repository [phone] (HP) Date:8182-38-52GM [address] [place] [address]PV: 11/22/2017 Secondary NOT GIVENUNK [place] Insurance:SELF PAY Community [facility] Number: Effective Repository Date:2017-11-22 11/01/2017 PENG Mckeon [id number] Primary DONELL FRYDOB: Jin [place] [facility] [id number] CARE[place] Number: Hospital [id number]: 330 [id number] Repository [phone] (HP) Date:6253-43-22MO [address] [place] [address]IR: 11/01/2017 Secondary NOT GIVENUNK [place] Insurance:SELF PAY Community [facility] Number: Effective Repository Date:2017-07-25 11/01/2017 PENG Mckeon [id number] Primary DONELL FRYDOB: [place] GRE[place] Insurance:[employer] [id number] CARE[place] Number: Hospital [id number]: 330 [id number] Repository [phone] (HP) Date:6439-67-06XZ [facility] [facility] [place] [address]CR: 11/01/2017 Secondary NOT GIVENUNK [place] Insurance:SELF PAY [facility] Hospital Number: Effective Repository Date:2017-11-01 07/23/2017 PENG Mckeon [id number] Primary DONELL FRYDOB: [place] [facility] Insurance:[facility] [id number] CAREPolicy Number: Hospital [id number]: (330) [id number] Repository [phone] (HP) Date:2320-12-17JO [address] [address]MF: 07/23/2017 Secondary NOT GIVENUNK [place] Insurance:SELF PAY [facility] Hospital Number: Effective Repository Date:2017-05-27 07/06/2017 PENG Mckeon FRYDOB: Primary PENG Mckeon FRYDOB: [facility] Insurance:[facility] [id number] [address] Number: [place], [place] [address]Twc: (330 [id number]: () Date:2017-07-06 [id number] ()Tel: ([phone]) Name:[facility] [address] () 362Cinthya[place]MANSOORPEND[place], [place] [address]EG: 05/20/2017 PENG Mckeon [id number] Primary DONELL FRYDOB: [place] [facility] Insurance:[facility] [id number] Number: Hospital [address]Ank: 330 [id number] Repository [phone] () Date:2714-57-45LL [address] [facility] [place] [address]TS: 05/20/2017 Secondary NOT GIVENUNK [place] Insurance:SELF PAY Community [facility] Hospital Number: Effective Repository Date:2017-03-31 05/19/2017 Peng Mckeon [id number] Primary DONELL FRYDOB: [place] [facility] [id number] [place] CAREPolicy Number: [facility] [id number]: (330 [id number] Repository [phone] () Date:6734-74-44QI [address] [address]HN: 05/19/2017 Secondary NOT GIVENUNK [place] Insurance:SELF PAY Community [facility] Hospital Number: Effective Repository Date:2017-02-23 05/19/2017 Peng Mckeon [id number] Primary DONELL FRYDOB: [place] Insurance:[facility] [id number] [place] CAREPolicy Number: Hospital [id number]: (330 [id number] Repository [phone] () Date:9213-07-59XV [address] [place] [address]KZ: 05/19/2017 Secondary NOT GIVENUNK [place] Insurance:SELF PAY Community [facility] Hospital Number: Effective Repository Date:2017-05-19
== END ==
PROVIDERS: Family Provider Preventive Medicine Occupational Medicine; PCP Preventive Medicine Occupational Medicine; Referring Provider Nurse Practitioner Family; Visit Provider Nurse Practitioner Family
DX: Z95.2 Presence of prosthetic heart valve (principal)
CPT/HCPCS: 93306; Q9957; A4216; C8929

== ENCOUNTER 2018-05-25 11:13 | Outpatient (RCR) | payer MEDICARE, OTHER, SELFPAY ==
[2018-05-25 11:40] LABS: Prothrombin Time (Protime)PT. 38.7 SECONDS (11.7-14.9)
[2018-05-25 11:42] LABS: International Normalized Ratio 3.9
== END 2018-05-25 12:00 | disposition home or self-care (01) ==
LOC: LAB 11:13
PROVIDERS: Family Provider Preventive Medicine Occupational Medicine; PCP Preventive Medicine Occupational Medicine; Referring Provider Internal Medicine Cardiovascular Disease; Visit Provider Internal Medicine Cardiovascular Disease
DX: Z95.4 Presence of other heart-valve replacement (principal); Z79.01 Long term (current) use of anticoagulants
CPT/HCPCS: 36415; 85610

== ENCOUNTER 2018-08-10 10:34 | Outpatient (RCR) | payer MEDICARE, OTHER, SELFPAY ==
[2018-05-25 11:46] VITALS: BMI 44.3
[2018-08-10 11:42] LABS: Prothrombin Time (Protime)PT. 35.9 SECONDS (11.7-14.9)
[2018-08-10 11:49] LABS: International Normalized Ratio 3.6
== END 2018-08-22 16:00 | disposition home or self-care (01) ==
LOC: LAB 10:34
PROVIDERS: Family Provider Preventive Medicine Occupational Medicine; PCP Preventive Medicine Occupational Medicine; Referring Provider Internal Medicine Cardiovascular Disease; Visit Provider Internal Medicine Cardiovascular Disease
DX: Z95.4 Presence of other heart-valve replacement (principal); Z79.01 Long term (current) use of anticoagulants
CPT/HCPCS: 36415; 85610

== ENCOUNTER 2018-09-27 09:24 | Outpatient (RCR) | payer MEDICARE, OTHER, SELFPAY ==
[2018-05-25 11:46] VITALS: BMI 44.3
[2018-09-27 10:52] LABS: Prothrombin Time (Protime)PT. 31.1 SECONDS (11.7-14.9)
[2018-09-27 11:18] LABS: AST(SGOT) 19 U/L (15-37); Alanine Aminotransfer ALT/SGPT 25 U/L (16-61); Albumin, Serum 3.9 g/dL (3.2-5.0); Alkaline Phosphatase 87 U/L (45-117); Bilirubin, Direct 0.23 mg/dL (0.00-0.30); Cholesterol 124 mg/dL (200); Globulin 4.1 g/dL (2.2-4.2); High Density Lipoprotein 34 mg/dL; Triglycerides 127 mg/dL; Very Low Density Lipoprotein 25 mg/dL (5-40)
== END 2018-09-27 10:00 | disposition home or self-care (01) ==
LOC: LAB 09:24
PROVIDERS: Family Provider Preventive Medicine Occupational Medicine; PCP Preventive Medicine Occupational Medicine; Referring Provider Internal Medicine Cardiovascular Disease; Visit Provider Internal Medicine Cardiovascular Disease
DX: Z95.4 Presence of other heart-valve replacement (principal); Z79.01 Long term (current) use of anticoagulants; E78.00 Pure hypercholesterolemia, unspecified
CPT/HCPCS: 36415; 80061; 80076; 85610

== ENCOUNTER 2018-11-23 14:00 | Outpatient (RCR) | payer MEDICARE, OTHER, SELFPAY ==
[2018-05-25 11:46] VITALS: BMI 44.3
[2018-11-23 13:11] VITALS: BMI 41.1
[2018-11-23 14:30] LABS: Prothrombin Time (Protime)PT. 31.6 SECONDS (11.7-14.9)
== END 2018-11-23 16:00 | disposition home or self-care (01) ==
LOC: LAB 14:00
PROVIDERS: Family Provider Preventive Medicine Occupational Medicine; PCP Preventive Medicine Occupational Medicine; Referring Provider Internal Medicine Cardiovascular Disease; Visit Provider Internal Medicine Cardiovascular Disease
DX: Z95.4 Presence of other heart-valve replacement (principal); Z79.01 Long term (current) use of anticoagulants
CPT/HCPCS: 36415; 85610

== ENCOUNTER → 2019-02-26 | Outpatient (CLI) | payer MEDICARE, OTHER, SELFPAY ==
--- NOTE | 2019-02-26 14:51 | CT_ITS ---
STUDY: CT CHEST WITH CONTRAST REASON FOR EXAM: Male, 64 years old. Follow-up history of aneurysm repair. RADIATION DOSAGE (If Supplied By Facility): CTDIvol = ( 16.38 ) mGy, DLP = ( 721.81 ) mGycm TECHNIQUE: Transaxial imaging was performed following intravenous administration of IV Isovue 300 100CC. Individualized dose optimization techniques were used for this CT. COMPARISON: CT of the chest, February 17, 2017. FINDINGS: The lungs are normal. There is no demonstrated pleural abnormality. The heart isn't enlarged. There is evidence of aortic valve replacement. There are calcifications of the coronary arteries. Normal mediastinum. Normal hilar regions. Normal enhanced pulmonary arteries. There is a dissection of the thoracic aorta on the level of the off take of the bovine origin of the right brachiocephalic and left carotid arteries descending into the descending and into aorta. Right brachiocephalic artery arises from the true lumen. There is a dissection extending into the proximal left common carotid artery and central subclavian artery. There is evidence of fusiform aneurysm at the origin of the dissection with partial thrombus of the proximal false lumen. Maximum diameter is 6.5 x 5.2 cm There are multi-level degenerative changes of the thoracic spine. The celiac access SMA and both renal arteries arise from the true lumen. There is cortical loss in the upper pole of both kidneys. The abdomen appears otherwise unremarkable. CT/Chest WITH Contrast IMPRESSION: 1. 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 This appears unchanged from the prior study. 2. Stable aortic valve repair. 3. No change from February 17, 2017. Electronically Signed: Sumeet Griffith DO at 20:16 EST Tel [phone], Service support ,
[2019-02-26 15:06] LABS: CREATININE FINGERSTICK 0.9 mg/dL (0.70-1.30)
== END | disposition home or self-care (01) ==
PROVIDERS: Family Provider Preventive Medicine Occupational Medicine; PCP Preventive Medicine Occupational Medicine; Referring Provider Nurse Practitioner Family; Visit Provider Nurse Practitioner Family
DX: Z86.79 Personal history of other diseases of the circulatory system (principal); Z95.1 Presence of aortocoronary bypass graft; Z95.4 Presence of other heart-valve replacement; Z98.890 Other specified postprocedural states
CPT/HCPCS: 71260; Q9967

== ENCOUNTER 2019-03-26 10:50 | Outpatient (RCR) | payer MEDICARE, OTHER, SELFPAY ==
[2019-03-26 12:42] LABS: International Normalized Ratio 2.5; Prothrombin Time (Protime)PT. 27.1 SECONDS (11.7-14.9)
== END 2019-03-26 18:00 | disposition home or self-care (01) ==
LOC: LAB 10:50
PROVIDERS: Family Provider Preventive Medicine Occupational Medicine; PCP Preventive Medicine Occupational Medicine; Referring Provider Internal Medicine Cardiovascular Disease; Visit Provider Internal Medicine Cardiovascular Disease
DX: Z79.01 Long term (current) use of anticoagulants (principal)
CPT/HCPCS: 36415; 85610

== ENCOUNTER 2019-07-09 08:50 | Outpatient (RCR) | payer MEDICARE, OTHER, SELFPAY ==
[2019-06-07 13:55] VITALS: BMI 44.1
[2019-07-09 09:57] LABS: International Normalized Ratio 3.2; Prothrombin Time (Protime)PT. 32.5 SECONDS (11.7-14.9)
[2019-07-09 10:03] LABS: Anion Gap 6 (5-15); BUN 22 mg/dL (7-18); BUN/Creat Ratio 23.8 RATIO (10-20); Calcium,Total 9.1 mg/dL (8.5-10.1); Chloride 104 mmol/L (98-107); Creatinine, Serum 0.92 mg/dL (0.70-1.30); EST Glomerular Filtration Rate 87 mL/min (>60); Est Glom Filt Rate - Afr Amer 105 mL/min (>60); Glucose 145 mg/dL (74-106); PSA,Total - Annual Screen 3.71 ng/mL (0.00-4.00); Potassium 4.1 mmol/L (3.5-5.1); Sodium Level 138 mmol/L (136-145); Uric Acid 4.9 mg/dL (3.5-7.2)
== END 2019-07-09 18:00 | disposition home or self-care (01) ==
LOC: LAB 08:50
PROVIDERS: Family Provider Preventive Medicine Occupational Medicine; PCP Preventive Medicine Occupational Medicine; Referring Provider Internal Medicine Cardiovascular Disease; Visit Provider Internal Medicine Cardiovascular Disease
DX: Z79.01 Long term (current) use of anticoagulants (principal)
CPT/HCPCS: 36415; 80048; 82043; 82570; 84153; 84550; 85610; G0103

== ENCOUNTER → 2019-07-09 | Outpatient (CLI) | payer MEDICARE, OTHER, SELFPAY ==
[2019-06-07 13:55] VITALS: BMI 44.1
--- NOTE | 2019-07-09 16:43 | STRESSREP ---
Stress Test Report Pharmacologic myocardial perfusion stress test. 64-year-old man with a history of coronary artery bypass surgery and aortic valve replacement. Stress protocol: Resting EKG demonstrates atrial fibrillation with a rate of 73 bpm normal intervals are noted resting blood pressures 140/80 mmHg. 0.4 mg of regadenoson was infused per usual protocol followed by rapid intravenous saline flush injection continuous EKG monitoring was performed. Patient maintained atrial fibrillation throughout the recording. The maximum heart rate was 97 bpm which was 62% of maximum predicted heart rate the maximum workload was 1 metabolic equivalent. The patient maintained atrial fibrillation throughout. At rest there were no ST or T wave changes noted to suggest abnormal flow reserve at peak infusion nonspecific ST-T wave changes were noted. Resting blood pressure was 140/80 mmHg with a final blood pressure 128/70 mmHg. No clinical angina was noted. Myocardial perfusion protocol. 14.6 mCi of technetium 99m sestamibi was injected at rest. 0.4 mg of regadenoson was infused per usual protocol peak infusion 44.7 mCi of technetium 99m sestamibi was injected stress images were obtained stress and rest images were reconstructed in comparing the short axis vertical long horizontal long axis. Gated images were also obtained Perfusion SPECT analysis: Review of the stress images demonstrate normal uptake of tracer noted in all areas of the myocardium the resting images similar demonstrate normal uptake of tracer noted in all areas of the myocardium no reversibility is noted suggest ischemia no previous infarct is noted. Gated SPECT analysis: The gated ejection fraction is noted to be 55%. Conclusion: Pharmacologic myocardial perfusion stress test, with no evidence of ischemia. Atrial fibrillation noted. Preserved ejection fraction.
== END | disposition home or self-care (01) ==
LOC: CVS 06:40
PROVIDERS: PCP Preventive Medicine Occupational Medicine; Referring Provider Internal Medicine Cardiovascular Disease; Visit Provider Internal Medicine Cardiovascular Disease
DX: I25.10 Atherosclerotic heart disease of native coronary artery without angina pectoris (principal); Z95.1 Presence of aortocoronary bypass graft; E11.9 Type 2 diabetes mellitus without complications; M10.9 Gout, unspecified; Z12.5 Encounter for screening for malignant neoplasm of prostate; Z79.01 Long term (current) use of anticoagulants
CPT/HCPCS: 36415; 78452; 80048; 82043; 82570; 84153; 84550; 85610; 93017; 93306; A9500; Q9957; A4216; C8929; G0103; J2785

== ENCOUNTER 2019-12-04 10:39 | Outpatient (RCR) | payer MEDICARE, OTHER, SELFPAY ==
[2019-06-07 13:55] VITALS: BMI 44.1
[2019-12-04 11:32] LABS: Prothrombin Time (Protime)PT. 30.6 SECONDS (11.7-14.9)
== END 2019-12-24 18:00 | disposition home or self-care (01) ==
LOC: LAB 10:39
PROVIDERS: Family Provider Preventive Medicine Occupational Medicine; PCP Preventive Medicine Occupational Medicine; Referring Provider Internal Medicine Cardiovascular Disease; Visit Provider Internal Medicine Cardiovascular Disease
DX: Z79.01 Long term (current) use of anticoagulants (principal)
CPT/HCPCS: 36415; 85610

== ENCOUNTER 2020-03-21 11:11 | Outpatient (RCR) | payer MEDICARE, OTHER, SELFPAY ==
[2019-06-07 13:55] VITALS: BMI 44.1
[2020-02-29 09:29] VITALS: BMI 43.4
[2020-02-29 11:16] LABS: International Normalized Ratio 2.9; Prothrombin Time (Protime)PT. 30.3 SECONDS (11.7-14.9)
[2020-02-29 11:34] LABS: Anion Gap 6 (5-15); BUN 22 mg/dL (7-18); BUN/Creat Ratio 24.4 RATIO (10-20); Calcium,Total 9.5 mg/dL (8.5-10.1); Chloride 103 mmol/L (98-107); EST Glomerular Filtration Rate 89 mL/min (>60); Est Glom Filt Rate - Afr Amer 108 mL/min (>60); Glucose 118 mg/dL (74-106); Sodium Level 138 mmol/L (136-145)
[2020-03-07 11:30] LABS: International Normalized Ratio 3.3; Prothrombin Time (Protime)PT. 33.3 SECONDS (11.7-14.9)
[2020-03-14 14:31] LABS: International Normalized Ratio 3.4; Prothrombin Time (Protime)PT. 33.9 SECONDS (11.7-14.9)
[2020-03-21 11:59] LABS: International Normalized Ratio 2.3; Prothrombin Time (Protime)PT. 24.8 SECONDS (11.7-14.9)
== END 2020-03-21 18:00 | disposition home or self-care (01) ==
LOC: LAB 11:11
PROVIDERS: Family Provider Preventive Medicine Occupational Medicine; PCP Preventive Medicine Occupational Medicine; Referring Provider Internal Medicine Cardiovascular Disease; Visit Provider Internal Medicine Cardiovascular Disease
DX: Z79.01 Long term (current) use of anticoagulants (principal)
CPT/HCPCS: 36415; 80048; 85610

== ENCOUNTER 2020-03-28 10:29 | Day surgery (SDC) | payer MEDICARE, OTHER, SELFPAY ==
[2020-02-29 09:29] VITALS: BMI 43.4
--- NOTE | 2020-03-21 11:20 | RAD_ITS ---
EXAM DESCRIPTION: PORTABLE AP CHEST CLINICAL HISTORY: 65 years Male, cardioversion next week, AFIB -- SOB, heart valve placed 2007 cardioversion next week, AFIB -- SOB, heart valve placed 2007 COMPARISON: Previous CT scan of the chest obtained on 02/26/2019 FINDINGS: Sternotomy sutures are noted in place. Heart valve prosthesis is also seen. The rest of the thorax is intact. The heart is enlarged and the mediastinum appeasr to be within normal limits. The lungs appear to be well areated without evidence of pneumonic consolidation or pleural effusion. RAD/Chest PA and Lateral IMPRESSION: Mild cardiomegaly otherwise the chest shows no acute pathology. Electronically Signed: Iban Navarrete, at 14:41 EST Tel , Service support ,
[2020-03-27 08:06] VITALS: BMI 43.4
--- NOTE | 2020-03-28 10:51 | HP_ITS ---
HPI HPI History of Present Illness Details: PENG BAPTISTE, is a 65 M who presents to the office today for a follow-up visit. He is a gentleman with a history of coronary artery disease status post coronary bypass surgery in 2008 with a reverse SVG to PDA, aortic valve replacement with a [address] Alberto's aortic valve in 2008 as well as a type a aortic dissection status repair in 2008. He states being diagnosed with diabetes mellitus type 2 in May 2018. Pt denies chest, arm, jaw, or neck discomfort. His exercise tolerance is stable. Pt denies symptoms of dizziness, near syncopal or syncopal episodes. Pt denies edema or claudication issues. Pt. denies orthopnea, PND, fever, chills, blood in urine, blood in stool, myalgia. Did have some fatigue in June which was unexplainable. Necessarily feel his heart rate being irregular all the time. His physical exam demonstrates clear lung richardson irregular rate and rhythm with a crisp prosthetic valve murmur and sounds and no pedal edema Intake Vital Signs 02/29/20 Height 5 ft 9 in 02/29/20 Weight: 294 lb 02/29/20 BMI 43.4 02/29/20 BP 132/70 H 02/29/20 Respiration 18 02/29/20 Pulse 78 02/29/20 Pulse Oximetry (%) 96 Intake Visit Reasons: 7 M FU (we r/s from 01/09) Allergies fentanyl Allergy (Verified 02/29/20 09:29) HALLUCINATIONS/VERY CONFUSED niacin Allergy (Verified 02/29/20 09:29) SWEATY,AND REAL HOT Penicillins Allergy (Verified 02/29/20 09:29) Unknown Medications allopurinol 300 mg tablet 300 mg PO QDAY 05/20/17 [History Confirmed 02/29/20] coenzyme Q10 200 mg capsule 200 mg PO BID cap 05/20/17 [History Confirmed 02/29/20] magnesium oxide 400 mg (241.3 mg magnesium) tablet 400 mg PO QDAY tab 05/20/17 [History Confirmed 02/29/20] metformin 500 mg tablet 1,500 mg PO DAILY tab 11/23/18 [History Confirmed 02/29/20] doxazosin 4 mg tablet 4 mg PO DAILY #90 tab 06/07/19 [Rx Confirmed 02/29/20] hydrochlorothiazide 25 mg tablet 25 mg PO QDAY #90 tab 02/15/20 [Rx Confirmed 02/29/20] amlodipine 10 mg tablet 10 mg PO QDAY #90 tab 02/29/20 [Rx Confirmed 02/29/20] lisinopril 40 mg tablet 40 mg PO BID #180 tab 02/29/20 [Rx Confirmed 02/29/20] metoprolol succinate 200 mg tablet,extended release 24 hr 100 mg PO BID #90 tab 02/29/20 [Rx Confirmed 02/29/20] pravastatin 40 mg tablet 40 mg PO QHS #90 tab 02/29/20 [Rx Confirmed 02/29/20] warfarin 4 mg tablet 8 mg PO SUMOTUWETH #180 tab 02/29/20 [Rx Confirmed 02/29/20] warfarin 5 mg tablet 5 mg PO FRSA #45 tab 02/29/20 [Rx Confirmed 02/29/20] Ejection fraction %: 60 to 64 PFSH Medical History Paroxysmal atrial fibrillation (Chronic) Essential (primary) hypertension (Chronic) Hyperlipidemia (Chronic) Ascending aortic dissection (Chronic) Obesity (Chronic) Type 2 diabetes mellitus (Chronic) Surgical History Hx of repair of dissecting thoracic aortic aneurysm, [place] type A (Chronic 07/12/08) History of mechanical aortic valve replacement (Chronic 07/12/08) H/O coronary artery bypass surgery (Resolved 07/12/08) H/O arthroscopic knee surgery (Resolved) History of tonsillectomy (Resolved) Family History Mother CAD (coronary artery disease) Cancer Father CAD (coronary artery disease) Cancer Social History (Updated 02/29/20 @ 10:[address] Yossi Rae MD) Smoking Status: Former smoker alcohol intake: current alcohol intake frequency: holidays/special occasions only caffeine: No ROS Const Const: Positive for fatigue (Since June); negative for weakness, headache(s), frequent falls, difficulty sleeping or excessive sweating Eyes Eyes: Negative for loss of peripheral vision, transient loss of vision, blurry vision, double vision or tunnel vision ENT ENT: Negative for headache(s), dizziness, Nosebleed/epistaxis or balance problems Cardio Chest Pain: No Palpitations: No Edema: None Muscle aches with walking: None Resp Respiratory: Positive for SOB with activity (new onset since June); negative for SOB at rest, SOB orthopnea\SOB lying down, Cough or paroxysmal nocturnal dyspnea GI GI: Negative nausea, vomiting, heartburn or black,tarry stools : Negative for hematuria Musc Musc: Negative for muscle aches/ myalgia, muscle weakness, joint pain or balance problems Skin Skin: Negative non-healing lesions, rash or unusual bruising Neuro Neuro: Negative for dizziness, lightheadedness, near syncope, syncope, orthostatic symptoms, frequent falls, headache(s), weakness, blurry vision, double vision or lack of coordination Paul Hematologic/Lymphatic: Negative for easy bleeding or easy bruising Endo Endo: Positive for fatigue (Since June); negative for excessive sweating or increased thirst/drinking Psych Psych: Negative for anxiety or depression Allergy Allergy/Immunology: Negative for hives, Negative for rash Cardiology Exam Const Appearance: cooperative, healthy appearing, no acute distress, well developed and well groomed Nutritional Appearance: average body habitus and well nourished Orientation: alert, awake and oriented x3 Head Head: normal to inspection, normocephalic and atraumatic Ears: hearing grossly normal bilaterally and external ears normal Nose: external nose normal, nares normal, nasal mucous membranes and turbinates normal, septum normal, no nasal discharge Face and Sinus: face symmetric Mouth: oral mucosae normal, tongue normal, oropharynx normal and moist mucous membranes Teeth and gingiva: dentition normal Throat: posterior oropharynx normal, tonsils normal and uvula midline Eyes General: appearance normal, both eyes and all related structures Eyelids: eyelids normal Conjunctivae: conjunctivae normal Pupils: PERRL, normal by confrontation and accommodation normal EOM: EOM intact bilaterally Neck Neck: normal visual inspection, trachea midline and no JVD JVD: +5 Carotids: normal carotid upstroke and bounding pulses Chest Chest inspection: normal inspection of the chest, symmetric chest movement and normal respiratory effort Auscultation: Bilateral: Clear to Auscultation Cardio Palpation: normal PMI Rate: regular rate Rhythm: irregular rhythm Heart sounds: S1 normal, normal, physiologic split S2 and crisp prosthetic S2; negative rub, gallop or murmur GI GI: normal to inspection, soft, no hepatosplenomegaly and bowel sounds present Neuro General: alert, awake, oriented x3, gait normal, moves all extremities and no focal sensory deficit Skin Skin: no rashes or lesions noted Extremities Pulses: Normal: Right Femoral Pulse, Left Femoral Pulse, Right Dorsalis Pedis Pulse, Left Dorsalis Pedis Pulse, Right Posterior Tibial Pulse, Left Posterior Tibial Pulse, Right Radial Pulse, Left Radial Pulse Lower Extremity Edema: None: Bilateral Musculoskel Musculoskeletal: No joint tenderness Psych Psychological: normal affect Assessment & Plan 1. Paroxysmal atrial fibrillation I48.0 Plan He appears to be in atrial fibrillation. He has had some fatigue. It was noted on his pharmacologic stress test in June of this year that he was in atrial fibrillation. He has had some periods of fatigue. He has been anticoagulated due to his valve. My recommendation is for us to consider an attempt at DC cardioversion. He will continue his other medications. Depending on the response further recommendations will be made. I discussed with this with him and he understands and agrees to proceed. Orders Orders: Cardioversion Today Basic Metabolic Profile (BMP) 1 Week Prothrombin Time w/INR 1 Week 2. History of mechanical aortic valve replacement Z95.[address] [facility] in June 2008 Plan He does have a history of mechanical aortic valve replacement. His last echocardiogram demonstrated an ejection fraction of 60% with a peak mean gradient of 25 over 14 mmHg. His valve area is 1.5 cm?. 3. H/O coronary artery bypass surgery Z95.1 CABG x 1 SVG to PDA in June 2008 Plan He is status post coronary artery bypass surgery. He has not had any evidence of angina his last stress test did not demonstrate any evidence of ischemia. 4. Essential (primary) hypertension I10 Plan He does have a history of hypertension which appears to be much better controlled at this particular time. I would not recommend that we make any changes. 5. Pure hypercholesterolemia E78.00 Plan He does have a history of hyperlipidemia he will remain on the current medical therapy. Plan Detail Other Medications Refilled: warfarin 2 tablets S/M/T// for 8 mg-then one tablet Fri/Tue with a 1 mg tab for 5 mg- or otherwise as directed. 8 mg See Protocol PO SUMOTUWETH 180 tabs 3RF warfarin 5 mg See Protocol PO FRSA 45 tabs 3RF metoprolol succinate ER 100 mg (1/2 x 200 mg) PO BID 90 tabs 4RF lisinopril 40 mg PO BID 180 tabs 4RF amlodipine 10 mg PO QDAY 90 tabs 4RF pravastatin 40 mg PO QHS 90 tabs 4RF Follow Up 4 Months (tooth cutter) Coding Level of Care Code Off vis,est,level 4 Diagnoses Paroxysmal atrial fibrillation I48.0 History of mechanical aortic valve replacement Z95.2 H/O coronary artery bypass surgery Z95.1 Essential (primary) hypertension I10 Pure hypercholesterolemia E78.00 ??Hyperlipidemia type: pure hypercholesterolemia Coding Level of Care Code Off vis,est,level 4 Diagnoses Paroxysmal atrial fibrillation I48.0 History of mechanical aortic valve replacement Z95.2 H/O coronary artery bypass surgery Z95.1 Essential (primary) hypertension I10 Pure hypercholesterolemia E78.00 ??Hyperlipidemia type: pure hypercholesterolemia Supplemental Info Supplemental Information Labs LDL Cholesterol 65 mg/dL (0-130) 09/27/18 HDL Cholesterol 34 mg/dL (40-) L 09/27/18 Triglycerides 127 mg/dL (-199) 09/27/18 VLDL Cholesterol 25 mg/dL (5-40) 09/27/18 Diagnostics Stress Test Nuclear Medicine 07/09/19 Stress Test 07/09/19
--- NOTE | 2020-03-28 12:16 | CARDIOVERS ---
Cardioversion Cardioversion: 65-year-old man with a history of chronic atrial fibrillation coronary artery bypass surgery status post aortic valve replacement. DC cardioversion. The patient was brought to the cardiac catheterization lab in the postabsorptive nonsedated state. Patient was seen by Dr. Carmona of the critical care division. Informed consent was obtained. Anterior posterior pads were applied. The patient was then administered 60 mg of intravenous propofol. 200 J of synchronized DC cardioversion energy were applied with prompt reversal to sinus rhythm. Patient tolerated the procedure well. Conclusion: DC cardioversion with reversal to sinus rhythm from atrial fibrillation. Continue current medical therapy. Follow-up in my office.
--- NOTE | 2020-03-28 13:04 | PCM.OP.PRO ---
Procedure Report Date of Procedure: 03/28/20 CONSCIOUS SEDATION REPORT DATE OF SERVICE: March 28, 2020 BRIEF HISTORY OF PRESENT ILLNESS: The patient is a 65-year-old male who presented to [facility] for an elective outpatient cardioversion due to underlying atrial fibrillation. The patient is currently anticoagulated on Coumadin with an INR today of 3.2. His last surface echocardiogram revealed an ejection fraction of approximately 60%. The patient is a lifelong non-smoker and has never been diagnosed with obstructive sleep apnea. He denies any previous anesthetic complications. PHYSICAL EXAMINATION: VITAL SIGNS: Reviewed and were acceptable. GENERAL: The patient is an obese male, in no apparent distress, speaking in full sentences. HEENT: Normocephalic, atraumatic. Mucous membranes are moist and pink. Good mouth opening noted. Trachea is midline. CHEST: S1, S2 irregularly irregular. No murmurs, rubs or gallops were noted. LUNGS: Clear to auscultation bilaterally without appreciable wheezes, rales or rhonchi. ABDOMEN: Soft, nontender, nondistended. Positive bowel sounds. EXTREMITIES: There is no clubbing, cyanosis or edema. ASA Class: II DESCRIPTION OF PROCEDURE: After confirmation of informed consent, the patient's anesthesia plan was reviewed in detail. Propofol was chosen. Risks and benefits were reviewed and the patient agreed to proceed. At 1208, the patient was given his first bolus of propofol. In total, the patient required 80 mg of propofol to achieve an appropriate level of sedation, after which time, he was given a 200 joule synchronized cardioversion by Dr. Rae at the bedside. This was successful in achieving normal sinus rhythm. The patient was monitored until 1218, at which time he reached his baseline mental status and function. The patient tolerated the procedure well. COMPLICATIONS: None ESTIMATED BLOOD LOSS: None RECOMMENDATIONS: Okay to recover in usual fashion. [id number]: Other Procedure See Report - [id number]
[2020-03-30 15:45] LABS: Prothrombin Time Fingerstick 35.2 SEC (11.9-14.4)
== END 2020-03-28 13:15 | disposition home or self-care (01) ==
LOC: CLSP 10:32
PROVIDERS: PCP Preventive Medicine Occupational Medicine; Referring Provider Internal Medicine Cardiovascular Disease; Visit Provider Internal Medicine Cardiovascular Disease
DX: I48.0 Paroxysmal atrial fibrillation (principal); I25.10 Atherosclerotic heart disease of native coronary artery without angina pectoris; I10 Essential (primary) hypertension; E78.00 Pure hypercholesterolemia, unspecified; E11.9 Type 2 diabetes mellitus without complications; E66.9 Obesity, unspecified; Z68.41 Body mass index [BMI] 40.0-44.9, adult; Z87.891 Personal history of nicotine dependence; Z79.84 Long term (current) use of oral hypoglycemic drugs; Z79.01 Long term (current) use of anticoagulants; Z95.2 Presence of prosthetic heart valve; Z95.1 Presence of aortocoronary bypass graft; Z79.899 Other long term (current) drug therapy
CPT/HCPCS: 36416; 71046; 85610; 92960; 93005; J7040

== ENCOUNTER 2020-05-20 16:00 | Outpatient (RCR) | payer MEDICARE, OTHER, SELFPAY ==
[2020-02-29 09:29] VITALS: BMI 43.4
[2020-03-27 08:06] VITALS: BMI 43.4
[2020-05-20 16:47] LABS: International Normalized Ratio 2.1; Prothrombin Time (Protime)PT. 23.4 SECONDS (11.7-14.9)
== END 2020-05-20 18:00 | disposition home or self-care (01) ==
LOC: LAB 16:00
PROVIDERS: Family Provider Preventive Medicine Occupational Medicine; PCP Preventive Medicine Occupational Medicine; Referring Provider Internal Medicine Cardiovascular Disease; Visit Provider Internal Medicine Cardiovascular Disease
DX: Z79.01 Long term (current) use of anticoagulants (principal); Z95.2 Presence of prosthetic heart valve
CPT/HCPCS: 36415; 85610

== ENCOUNTER 2020-06-27 09:33 | Outpatient (RCR) | payer MEDICARE, OTHER, SELFPAY ==
[2020-03-27 08:06] VITALS: BMI 43.4
[2020-06-27 08:53] VITALS: BMI 43.9
[2020-06-27 10:26] LABS: International Normalized Ratio 3.1; Prothrombin Time (Protime)PT. 31.3 SECONDS (11.7-14.9)
== END 2020-06-27 18:00 | disposition home or self-care (01) ==
LOC: LAB 09:33
PROVIDERS: Family Provider Preventive Medicine Occupational Medicine; PCP Preventive Medicine Occupational Medicine; Referring Provider Internal Medicine Cardiovascular Disease; Visit Provider Internal Medicine Cardiovascular Disease
DX: Z95.2 Presence of prosthetic heart valve (principal); Z79.01 Long term (current) use of anticoagulants
CPT/HCPCS: 36415; 85610

== ENCOUNTER 2020-09-11 06:02 | Outpatient (RCR) | payer MEDICARE, OTHER, SELFPAY ==
[2020-08-25 08:40] LABS: International Normalized Ratio 3.2; Prothrombin Time (Protime)PT. 31.7 SECONDS (11.7-14.9)
[2020-09-04 08:07] LABS: International Normalized Ratio 2.2; Prothrombin Time (Protime)PT. 23.8 SECONDS (11.7-14.9)
[2020-09-11 07:34] LABS: International Normalized Ratio 2.9; Prothrombin Time (Protime)PT. 29.5 SECONDS (11.7-14.9)
== END 2020-09-11 18:00 | disposition home or self-care (01) ==
LOC: LAB 06:02
PROVIDERS: Family Provider Preventive Medicine Occupational Medicine; PCP Preventive Medicine Occupational Medicine; Referring Provider Internal Medicine Cardiovascular Disease; Visit Provider Internal Medicine Cardiovascular Disease
DX: Z95.2 Presence of prosthetic heart valve (principal); Z79.01 Long term (current) use of anticoagulants
CPT/HCPCS: 36415; 85610

== ENCOUNTER 2020-12-09 07:32 | Outpatient (RCR) | payer MEDICARE, OTHER, SELFPAY ==
[2020-12-09 08:36] LABS: International Normalized Ratio 3.5; Prothrombin Time (Protime)PT. 34.5 SECONDS (11.7-14.9)
== END 2020-12-09 18:00 | disposition home or self-care (01) ==
LOC: LAB 07:32
PROVIDERS: Family Provider Preventive Medicine Occupational Medicine; PCP Preventive Medicine Occupational Medicine; Referring Provider Internal Medicine Cardiovascular Disease; Visit Provider Internal Medicine Cardiovascular Disease
DX: Z79.01 Long term (current) use of anticoagulants (principal); Z95.2 Presence of prosthetic heart valve
CPT/HCPCS: 36415; 85610

== ENCOUNTER 2021-03-24 10:16 | Outpatient (RCR) | payer MEDICARE, OTHER, SELFPAY ==
[2020-12-23 20:01] VITALS: BMI 43.9
[2021-03-24 10:54] LABS: International Normalized Ratio 3.5
== END 2021-03-24 18:00 | disposition home or self-care (01) ==
LOC: LAB 10:16
PROVIDERS: Family Provider Preventive Medicine Occupational Medicine; PCP Preventive Medicine Occupational Medicine; Referring Provider Internal Medicine Cardiovascular Disease; Visit Provider Internal Medicine Cardiovascular Disease
DX: Z95.2 Presence of prosthetic heart valve (principal); Z79.01 Long term (current) use of anticoagulants
CPT/HCPCS: 36415; 85610

== ENCOUNTER 2021-06-03 09:36 | Outpatient (RCR) | payer MEDICARE, OTHER, SELFPAY ==
[2021-03-25 02:13] VITALS: BMI 43.9
[2021-06-03 11:59] LABS: International Normalized Ratio 3.6; Prothrombin Time (Protime)PT. 35.3 SECONDS (11.7-14.9)
== END 2021-06-03 18:00 | disposition home or self-care (01) ==
LOC: LAB 09:36
PROVIDERS: Family Provider Preventive Medicine Occupational Medicine; PCP Preventive Medicine Occupational Medicine; Referring Provider Internal Medicine Cardiovascular Disease; Visit Provider Internal Medicine Cardiovascular Disease
DX: Z95.2 Presence of prosthetic heart valve (principal); Z79.01 Long term (current) use of anticoagulants
CPT/HCPCS: 36415; 85610

== ENCOUNTER 2021-08-19 07:32 | Outpatient (RCR) | payer MEDICARE, OTHER, SELFPAY ==
[2021-06-23 09:32] VITALS: BMI 43.9
[2021-08-19 09:19] LABS: International Normalized Ratio 3.1; Prothrombin Time (Protime)PT. 31.2 SECONDS (11.7-14.9)
== END 2021-08-19 18:00 | disposition home or self-care (01) ==
LOC: LAB 07:32
PROVIDERS: Family Provider Preventive Medicine Occupational Medicine; PCP Preventive Medicine Occupational Medicine; Referring Provider Internal Medicine Cardiovascular Disease; Visit Provider Internal Medicine Cardiovascular Disease
DX: Z95.2 Presence of prosthetic heart valve (principal); Z79.01 Long term (current) use of anticoagulants
CPT/HCPCS: 36415; 85610

== ENCOUNTER 2021-10-15 08:39 | Outpatient (RCR) | payer MEDICARE, OTHER, SELFPAY ==
[2021-08-23 02:53] VITALS: BMI 43.9
[2021-10-15 09:19] LABS: International Normalized Ratio 3.2; Prothrombin Time (Protime)PT. 32.4 SECONDS (11.7-14.9)
[2021-10-15 09:31] LABS: AST(SGOT) 18 U/L (15-37); Alanine Aminotransfer ALT/SGPT 22 U/L (16-61); Albumin, Serum 3.8 g/dL (3.2-5.0); Alkaline Phosphatase 75 U/L (45-117); Anion Gap 2 (5-15); BUN 20 mg/dL (7-18); BUN/Creat Ratio 18.5 RATIO (10-20); Calcium,Total 9.3 mg/dL (8.5-10.1); Chloride 103 mmol/L (98-107); Cholesterol 129 mg/dL (200); Creatinine, Serum 1.08 mg/dL (0.70-1.30); EST Glomerular Filtration Rate 72 mL/min (>60); Est Glom Filt Rate - Afr Amer 87 mL/min (>60); Glucose 152 mg/dL (74-106); High Density Lipoprotein 34 mg/dL; PSA,Total - Annual Screen 6.97 ng/mL (0.00-4.00); Potassium 4.1 mmol/L (3.5-5.1); Protein, Total 7.8 g/dL (6.4-8.2); Sodium Level 136 mmol/L (136-145); Triglycerides 167 mg/dL; Very Low Density Lipoprotein 33 mg/dL (5-40)
== END 2021-10-15 23:59 | disposition home or self-care (01) ==
LOC: LAB 08:39
PROVIDERS: Family Provider Preventive Medicine Occupational Medicine; PCP Preventive Medicine Occupational Medicine; Referring Provider Internal Medicine Cardiovascular Disease; Visit Provider Internal Medicine Cardiovascular Disease
DX: Z79.01 Long term (current) use of anticoagulants (principal); Z95.2 Presence of prosthetic heart valve; Z12.5 Encounter for screening for malignant neoplasm of prostate; E78.5 Hyperlipidemia, unspecified; E11.9 Type 2 diabetes mellitus without complications; M10.9 Gout, unspecified; I10 Essential (primary) hypertension
CPT/HCPCS: 36415; 80053; 80061; 82043; 84153; 84550; 85610; G0103

== ENCOUNTER 2021-11-11 08:17 | Outpatient (RCR) | payer MEDICARE, OTHER, SELFPAY ==
[2021-10-23 06:51] VITALS: BMI 43.9
[2021-11-11 09:35] LABS: Prothrombin Time (Protime)PT. 39.1 SECONDS (11.7-14.9)
[2021-11-13 07:57] LABS: PSA, Free 1.37 ng/mL; PSA, Free % 20.4 % (.); PSA, Total Ultrasensitive 6.7 ng/mL (0.0-4.0)
== END 2021-11-22 02:09 | disposition home or self-care (01) ==
LOC: LAB 08:17
PROVIDERS: Family Provider Preventive Medicine Occupational Medicine; PCP Preventive Medicine Occupational Medicine; Referring Provider Internal Medicine Cardiovascular Disease; Visit Provider Internal Medicine Cardiovascular Disease
DX: Z79.01 Long term (current) use of anticoagulants (principal); Z95.2 Presence of prosthetic heart valve; R97.20 Elevated prostate specific antigen [PSA]
CPT/HCPCS: 36415; 84153; 84154; 85610

== ENCOUNTER 2021-11-15 09:16 | Emergency (ER) | payer MEDICARE, OTHER, SELFPAY ==
[2021-11-15 09:16] VITALS: BP 132/66; PULSE 64; RESP 14; TEMP 36.4; O2SAT 95; BMI 44.0
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
[2021-11-15] MEDS: HYDROcodone Bitartrate/Apap 5/325 Tablet PO (10:20)
--- NOTE | 2021-11-15 10:39 | RAD_ITS ---
STUDY: X-RAY - PELVIS AND LEFT HIP REASON FOR EXAM: Male, 66 years old. Injury/Pain TECHNIQUE: 3 views of the pelvis and hip. COMPARISON: None. FINDINGS: There is a non-specific bowel gas pattern. Normal visualized soft tissue structures. No fracture or displaced bony fragment is present. No evidence of avascular necrosis. Mild to moderate degenerative changes are seen at the L5-S1 level. Mild right and mild to moderate left hip joint space narrowing is present. Normal bilateral iliac wings, sacroiliac joints and visualized sacrum. Normal bilateral superior and inferior pubic rami. There is narrowing with sclerosis of the pubic symphysis. Normal bilateral ischial tuberosities. Normal visualized femoral head. Normal acetabulum. RAD/HIP, UNI W/ Pelvis 2-3 Views IMPRESSION: 1. No acute fracture. Electronically Signed: Ruben Benjamin MD at 11:20 EDT ,
--- NOTE | 2021-11-15 10:39 | RAD_ITS ---
STUDY: X-RAY - LEFT SHOULDER REASON FOR EXAM: Male, 66 years old. Injury/Pain TECHNIQUE: 4 view(s) of the shoulder. COMPARISON: None. FINDINGS: There is mild degenerative arthrosis of the glenohumeral articulation. There is mild degenerative arthrosis of the acromioclavicular joint without inferior osseous spur formation. Normal acromion. Normal humeral head and visualized proximal humerus. The soft tissue structures are unremarkable. There is no demonstrated fracture. Normal visualized pulmonary apex. RAD/Shoulder min 2 Views IMPRESSION: 1. Mild DJD. No acute fracture is present Electronically Signed: Ruben Benjamin MD at 11:22 EDT ,
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
[2021-11-15 11:16] VITALS: RESP 18
[2021-11-15 12:30] LABS: Prothrombin Time (Protime)PT. 31.2 SECONDS (11.7-14.9)
== END 2021-11-15 13:34 | disposition home or self-care (01) ==
PROVIDERS: Emergency Provider Emergency Medicine; PCP Preventive Medicine Occupational Medicine; Visit Provider Emergency Medicine
DX: S40.012A Contusion of left shoulder, initial encounter (principal); E11.9 Type 2 diabetes mellitus without complications; S50.02XA Contusion of left elbow, initial encounter; S70.02XA Contusion of left hip, initial encounter; I10 Essential (primary) hypertension; E78.5 Hyperlipidemia, unspecified; V50 Occupant of pick-up truck or van injured in collision with pedestrian or animal; Z79.01 Long term (current) use of anticoagulants; Z79.899 Other long term (current) drug therapy; Z87.891 Personal history of nicotine dependence
CPT/HCPCS: 73030; 73080; 73502; 85610; 99282

== ENCOUNTER 2021-12-18 10:19 | Emergency (ER) | payer MEDICARE, OTHER, SELFPAY ==
[2021-12-18 10:20] VITALS: BP 144/68; PULSE 65; RESP 15; TEMP 36.3; O2SAT 94; BMI 40.6
[2021-12-18 10:25] VITALS: BP 144/68; PULSE 69; RESP 15; TEMP 36.3; O2SAT 95
--- NOTE | 2021-12-18 10:31 | RAD_ITS ---
STUDY: X-RAY - RIGHT FOOT CLINICAL: Male, 66 years old. Pain and swelling. TECHNIQUE: 2 view(s) of the foot. COMPARISON: None. FINDINGS: There is an enthesophyte involving the posterior superior calcaneus at the site of insertion of the Achilles tendon. Normal visualized subtalar, talonavicular, calcaneocuboid, tarsal and tarsometatarsal articulations. There is evidence of a talar neck beak. Normal metatarsi. Normal metatarsophalangeal joint of the great toe. Normal tibial and fibular sesamoid bones. Normal interphalangeal joint of the great toe. Normal phalanges of the great toe. Normal second through fifth metatarsophalangeal joints. Normal interphalangeal joints and phalanges of the lesser toes. Diffuse dorsal soft tissue swelling. RAD/Foot 2 Views IMPRESSION: Diffuse dorsal soft tissue swelling. Evidence of a talar neck beak. Electronically Signed: Tim Delgado MD at 11:55 EDT ,
--- NOTE | 2021-12-18 10:31 | VDLE_ITS ---
Reason For Study: RLE SWELLING RIGHT GSV is normal. CFV is compressible, spontaneous, phasic, competent and demonstrates normal augmentation. FV is compressible, spontaneous, phasic, competent and demonstrates normal augmentation. POP V is compressible. T/P Trunk is compressible. PTV is compressible. RT PerV is compressible. Procedure This is a venous duplex using B-mode, color flow and spectral Doppler. Exam performed portable in ED. The study was technically difficult. Due to body habitus and patients pain. A preliminary report was called and/or faxed to ED @ 11:00 am. VL/Venous Duplex US, Unilateral Interpretation Summary There is no evidence of right lower extremity deep vein thrombosis. Right great saphenous vein appears patent and compressible segmentally. Technically difficult examination. Ordering Physician: Stu Elliott Referring Physician: Benajmin Guzman Performed By: Emma Chavez, JESSA, RVT
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
[2021-12-18] MEDS: oxyCODONE 5 MG Tablet PO (10:46)
--- NOTE | 2021-12-18 11:00 | RAD_ITS ---
STUDY: X-RAY - RIGHT ANKLE REASON FOR EXAM: Male, 66 years old. Pain TECHNIQUE: 3 view(s) of the ankle. COMPARISON: None. FINDINGS: Normal visualized distal tibia and fibula. Evidence of old avulsion fractures of the medial malleolus. Normal tibiotalar articulation and ankle mortise. Small spur at the insertion of the Achilles tendon. The visualized subtalar, talonavicular, calcaneocuboid and tarsal articulations are normal. Talar neck beak. Diffuse soft tissue swelling. RAD/Ankle min 3 Views IMPRESSION: Diffuse soft tissue swelling. Findings suggestive of old avulsion fractures of the medial malleolus. Electronically Signed: Tim Delgado MD at 11:56 EDT ,
[2021-12-18 11:43] LABS: International Normalized Ratio 4.1; Prothrombin Time (Protime)PT. 39.2 SECONDS (11.7-14.9)
[2021-12-18] MEDS: Morphine 4 MG/ML Syringe IV (12:31)
[2021-12-18] MEDS: Ondansetron 4 MG/2 ML Vial IV (12:32)
== END 2021-12-18 13:47 | disposition home or self-care (01) ==
PROVIDERS: Nurse Practitioner; Emergency Provider Student in an Organized Health Care Education/Training Program; PCP Preventive Medicine Occupational Medicine; Visit Provider Student in an Organized Health Care Education/Training Program
DX: S92.811A Other fracture of right foot, initial encounter for closed fracture (principal); I71.00 Dissection of unspecified site of aorta; I48.0 Paroxysmal atrial fibrillation; E11.9 Type 2 diabetes mellitus without complications; I10 Essential (primary) hypertension; E78.5 Hyperlipidemia, unspecified; R60.0 Localized edema; Z87.891 Personal history of nicotine dependence; Z79.01 Long term (current) use of anticoagulants; Z79.84 Long term (current) use of oral hypoglycemic drugs; Z79.899 Other long term (current) drug therapy; X50.9XXA Other and unspecified overexertion or strenuous movements or postures, initial encounter
CPT/HCPCS: 73610; 73620; 85610; 93971; 96374; 96375; 99283; A4216; J2405

== ENCOUNTER 2022-01-05 12:46 | Outpatient (CLI) | payer MEDICARE, OTHER, SELFPAY ==
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
== END 2022-01-05 23:59 | disposition home or self-care (01) ==
LOC: CT 12:48
PROVIDERS: PCP Preventive Medicine Occupational Medicine; Referring Provider Podiatrist; Visit Provider Podiatrist
DX: S92.114A Nondisplaced fracture of neck of right talus, initial encounter for closed fracture (principal); Z95.2 Presence of prosthetic heart valve; Z79.01 Long term (current) use of anticoagulants
CPT/HCPCS: 36415; 73700; 76377; 85610

== ENCOUNTER 2022-01-05 13:05 | Outpatient (RCR) | payer MEDICARE, OTHER, SELFPAY ==
[2021-11-22 02:10] VITALS: BMI 43.9
[2022-01-05 13:48] LABS: Prothrombin Time (Protime)PT. 45.4 SECONDS (11.7-14.9)
[2022-01-05 13:50] LABS: International Normalized Ratio 4.9
== END 2022-01-05 18:00 | disposition home or self-care (01) ==
LOC: LAB 13:05
PROVIDERS: Family Provider Preventive Medicine Occupational Medicine; PCP Preventive Medicine Occupational Medicine; Referring Provider Internal Medicine Cardiovascular Disease; Visit Provider Internal Medicine Cardiovascular Disease
DX: Z79.01 Long term (current) use of anticoagulants (principal); Z95.2 Presence of prosthetic heart valve
CPT/HCPCS: 36415; 85610

== ENCOUNTER → 2022-01-07 | Outpatient (CLI) | payer MEDICARE, OTHER, SELFPAY ==
[2022-01-07 11:50] LABS: INR Fingerstick 3.4; Prothrombin Time Fingerstick 38.2 SEC (11.7-14.9)
== END | disposition home or self-care (01) ==
LOC: LAB 08:38
PROVIDERS: PCP Preventive Medicine Occupational Medicine; Referring Provider Internal Medicine Cardiovascular Disease; Visit Provider Internal Medicine Cardiovascular Disease
DX: I48.0 Paroxysmal atrial fibrillation (principal); Z79.01 Long term (current) use of anticoagulants; Z95.2 Presence of prosthetic heart valve
CPT/HCPCS: 36416; 85610

== ENCOUNTER 2022-02-15 15:10 | Outpatient (RCR) | payer MEDICARE, OTHER, SELFPAY ==
[2022-01-22 20:37] VITALS: BMI 43.9
[2022-02-11 11:15] LABS: Prothrombin Time (Protime)PT. 56.2 SECONDS (11.7-14.9)
[2022-02-11 12:02] LABS: International Normalized Ratio 6.4
[2022-02-15 16:07] LABS: International Normalized Ratio 2.7; Prothrombin Time (Protime)PT. 28.3 SECONDS (11.7-14.9)
== END 2022-02-15 18:00 | disposition home or self-care (01) ==
LOC: LAB 15:10
PROVIDERS: Family Provider Preventive Medicine Occupational Medicine; PCP Preventive Medicine Occupational Medicine; Referring Provider Internal Medicine Cardiovascular Disease; Visit Provider Internal Medicine Cardiovascular Disease
DX: Z79.01 Long term (current) use of anticoagulants (principal); Z95.2 Presence of prosthetic heart valve
CPT/HCPCS: 36415; 85610

== ENCOUNTER 2022-03-10 09:17 | Outpatient (RCR) | payer MEDICARE, OTHER, SELFPAY ==
[2022-02-23 09:28] VITALS: BMI 43.9
[2022-03-10 09:59] LABS: International Normalized Ratio 3.3; Prothrombin Time (Protime)PT. 32.9 SECONDS (11.7-14.9)
== END 2022-03-24 18:00 | disposition home or self-care (01) ==
LOC: LAB 09:17
PROVIDERS: Family Provider Preventive Medicine Occupational Medicine; PCP Preventive Medicine Occupational Medicine; Referring Provider Internal Medicine Cardiovascular Disease; Visit Provider Internal Medicine Cardiovascular Disease
DX: Z79.01 Long term (current) use of anticoagulants (principal); Z95.2 Presence of prosthetic heart valve
CPT/HCPCS: 36415; 85610

== ENCOUNTER 2022-05-24 06:48 | Outpatient (RCR) | payer MEDICARE, OTHER, SELFPAY ==
[2022-03-24 22:57] VITALS: BMI 43.9
[2022-05-24 08:24] LABS: Prothrombin Time (Protime)PT. 30.8 SECONDS (11.7-14.9)
[2022-05-25 20:22] LABS: PSA, Free 1.29 ng/mL; PSA, Free % 24.4 % (.)
== END 2022-05-24 08:00 | disposition home or self-care (01) ==
LOC: LAB 06:48
PROVIDERS: Family Provider Preventive Medicine Occupational Medicine; PCP Preventive Medicine Occupational Medicine; Referring Provider Internal Medicine Cardiovascular Disease; Visit Provider Internal Medicine Cardiovascular Disease
DX: Z79.01 Long term (current) use of anticoagulants (principal); Z95.2 Presence of prosthetic heart valve; R97.20 Elevated prostate specific antigen [PSA]
CPT/HCPCS: 36415; 84153; 84154; 85610

== ENCOUNTER 2022-09-16 07:32 | Outpatient (RCR) | payer MEDICARE, OTHER, SELFPAY ==
[2022-05-26 08:05] VITALS: BMI 43.9
[2022-09-16 08:26] LABS: International Normalized Ratio 3.3; Prothrombin Time (Protime)PT. 34.2 SECONDS (11.7-14.9)
== END 2022-09-16 09:00 | disposition home or self-care (01) ==
LOC: LAB 07:32
PROVIDERS: Family Provider Preventive Medicine Occupational Medicine; PCP Preventive Medicine Occupational Medicine; Referring Provider Internal Medicine Cardiovascular Disease; Visit Provider Internal Medicine Cardiovascular Disease
DX: Z79.01 Long term (current) use of anticoagulants (principal); Z95.2 Presence of prosthetic heart valve; I48.0 Paroxysmal atrial fibrillation
CPT/HCPCS: 36415; 85610

== ENCOUNTER 2022-12-01 09:17 | Outpatient (RCR) | payer MEDICARE, OTHER, SELFPAY ==
[2022-09-23 08:14] VITALS: BMI 43.9
[2022-12-01 09:58] LABS: Prothrombin Time (Protime)PT. 31.2 SECONDS (11.7-14.9)
== END 2022-12-01 18:00 | disposition home or self-care (01) ==
LOC: LAB 09:17
PROVIDERS: Family Provider Preventive Medicine Occupational Medicine; PCP Preventive Medicine Occupational Medicine; Referring Provider Internal Medicine Cardiovascular Disease; Visit Provider Internal Medicine Cardiovascular Disease
DX: Z79.01 Long term (current) use of anticoagulants (principal); Z95.2 Presence of prosthetic heart valve; R97.20 Elevated prostate specific antigen [PSA]
CPT/HCPCS: 36415; 85610

== ENCOUNTER → 2022-12-15 | Outpatient (CLI) | payer MEDICARE, OTHER, SELFPAY ==
--- NOTE | 2022-12-15 07:53 | CT_ITS ---
STUDY: CTA CHEST REASON FOR EXAM: Male, 67 years old. Evaluate Aneurysm repair stability RADIATION DOSAGE (If Supplied By Facility): CTDIvol = ( 18.91 ) mGy, DLP = ( 842.11 ) mGycm TECHNIQUE: The examination was performed with the intravenous administration of 100mL Isovue-300. Post-processing of the angiographic images was performed, with multiplanar reformation and 3D reconstruction. Individualized dose optimization techniques were used for this CT. COMPARISON: 02/26/2019 FINDINGS: Suboptimal enhancement of the pulmonary arteries as test technique was tailored for aortic study. No gross filling defects in the central pulmonary arteries, smaller or distal filling defects cannot be reliably excluded. Stable appearance of the aortic dissection extending from the right brachiocephalic vein through the aortic arch, descending aorta into the proximal abdominal aorta as on prior study. The dissection extends into the left common carotid and subclavian artery without significant change. The fusiform aneurysm at the origin of the dissection is minimally increased in size, maximum dimension 7.5 cm compared to 6.9 cm at the same level previously. There is again partial thrombosis of the proximal false lumen. The SMA, celiac axis and bilateral renal arteries arise from the true lumen. Normal heart and pericardium. Stable changes from aortic valve repair. Normal mediastinum. Normal hilar regions. No acute infiltrates or consolidations. No pleural effusions. Normal chest wall structures. No acute or aggressive osseous abnormality. No acute findings in the upper abdomen. CT/CTA Chest W/WO Contrast IMPRESSION: Stable aortic dissection with interval 6 mm increase in the fusiform aneurysm compared to the 2019 study. Electronically Signed: Nnamdi Alejandro MD at 17:06 EDT ,
[2022-12-15 08:28] LABS: CREATININE FINGERSTICK < 0.9 mg/dL (0.70-1.30); EGFR FINGERSTICK > 60.0000 mL/min (>60)
== END | disposition home or self-care (01) ==
LOC: CT 07:52
PROVIDERS: PCP Preventive Medicine Occupational Medicine; Referring Provider Nurse Practitioner Family; Visit Provider Nurse Practitioner Family
DX: Z98.890 Other specified postprocedural states (principal); Z86.79 Personal history of other diseases of the circulatory system
CPT/HCPCS: 71275; Q9967

== ENCOUNTER 2023-03-09 07:15 | Outpatient (RCR) | payer MEDICARE, OTHER, SELFPAY ==
[2022-12-23 22:10] VITALS: BMI 43.9
[2023-03-09 08:22] LABS: Prothrombin Time (Protime)PT. 40.3 SECONDS (11.7-14.9)
[2023-03-09 08:54] LABS: International Normalized Ratio 4.1
== END 2023-03-24 06:00 | disposition home or self-care (01) ==
LOC: LAB 07:15
PROVIDERS: Family Provider Preventive Medicine Occupational Medicine; PCP Preventive Medicine Occupational Medicine; Referring Provider Internal Medicine Cardiovascular Disease; Visit Provider Internal Medicine Cardiovascular Disease
DX: Z79.01 Long term (current) use of anticoagulants (principal); Z95.2 Presence of prosthetic heart valve; R97.20 Elevated prostate specific antigen [PSA]
CPT/HCPCS: 36415; 85610

== ENCOUNTER 2023-04-04 00:56 | Emergency (ER) | payer MEDICARE, OTHER, SELFPAY ==
[2023-04-04 00:57] VITALS: BP 141/77; PULSE 71; RESP 24; TEMP 36.9; O2SAT 93; BMI 44.2
--- NOTE | 2023-04-04 01:42 | EX.ED.DYSGE1 ---
HPI History of Present Illness Chief Complaint: Chest Pain Informant: patient and spouse/S.O. Narrative Narrative: Patient is a 68-year-old male with past medical history of paroxysmal atrial fibrillation hypertension hyperlipidemia and previous aortic aneurysm status postrepair with mechanical aortic valve currently on Coumadin. He states that her last 2 to 3 days he has noticed increasing left facial pain and swelling. He states there was no trauma and he denies any fevers or chills or difficulty breathing or swallowing. He is concerned for a developing infection and with this comes in for evaluation [facility] Medical History (Updated 04/04/23 @ 03:[address] Josh Lewis, DO) Ascending aortic dissection Basal cell carcinoma Essential (primary) hypertension Hyperlipidemia Obesity Paroxysmal atrial fibrillation Right bundle branch block (RBBB) Type 2 diabetes mellitus Home Medications allopurinol 300 mg tablet 300 mg PO QDAY 05/20/17 [History Last Taken Unknown] coenzyme Q10 200 mg capsule (Co Q-10) 200 mg PO BID 05/20/17 [History Last Taken Unknown] magnesium oxide 400 mg (241.3 mg magnesium) tablet 400 mg PO QDAY 05/20/17 [History Last Taken Unknown] metformin 500 mg tablet 1,500 mg PO DAILY 11/23/18 [History Last Taken Unknown] clindamycin HCl 150 mg capsule 150 mg PO TID #9 caps 01/30/21 [Rx Last Taken Unknown] metoprolol succinate 200 mg tablet,extended release 24 hr See Rx Instructions .Route .COMPLEX #90 tabs 04/15/22 [Rx Last Taken Unknown] doxazosin 4 mg tablet (Cardura) 4 mg PO DAILY #90 tabs 05/06/22 [Rx Last Taken Unknown] hydrochlorothiazide 25 mg tablet 25 mg PO QDAY #90 tabs 05/06/22 [Rx Last Taken Unknown] amlodipine 10 mg tablet 10 mg PO QDAY #90 tabs 06/02/22 [Rx Last Taken Unknown] pravastatin 40 mg tablet See Rx Instructions .Route .COMPLEX #90 tabs 06/02/22 [Rx Last Taken Unknown] lisinopril 40 mg tablet 40 mg PO BID #180 tabs 12/01/22 [Rx Last Taken Unknown] clindamycin HCl 300 mg capsule (Cleocin HCl) 300 mg PO 4X/DAY 10 days #40 CAPSULES 04/04/23 [Rx Last Taken Unknown] oxycodone-acetaminophen 5 mg-325 mg tablet (Percocet) 1 tab PO Q6H PRN pain 3 days #12 tabs 04/04/23 [Rx Last Taken Unknown] warfarin 4 mg tablet 8 mg PO SUSA 04/04/23 [History Last Taken Unknown] warfarin 5 mg tablet 5 mg PO MOTUWETHFR please give extra tablets in case of dose changes. 04/04/23 [History Last Taken Unknown] Allergy/AdvReac Type Severity Reaction Status Date / Time fentanyl Allergy HALLUCINATIONS/VERY Verified 04/04/23 00:57 CONFUSED niacin Allergy SWEATY,AND Verified 04/04/23 00:57 REAL HOT Penicillins Allergy Unknown Verified 04/04/23 00:57 Family History (Reviewed 12/01/22 @ 08:46 by Iban Rider ASSOCIATE STORE DIRECTOR, ASSOCIATE STORE DIRECTOR-C) Mother CAD (coronary artery disease) Cancer Father CAD (coronary artery disease) Cancer Surgical History (Updated 04/04/23 @ 03:[address] Josh Lewis, ) H/O arthroscopic knee surgery H/O coronary artery bypass surgery (07/12/08) History of cardioversion (03/28/20) History of mechanical aortic valve replacement (07/12/08) History of tonsillectomy Social History (Reviewed 12/01/22 @ 08:46 by Iban Rider ASSOCIATE STORE DIRECTOR, ASSOCIATE STORE DIRECTOR-C) Smoking Status: Former smoker alcohol intake: current alcohol intake frequency: holidays/special occasions only caffeine: No ROS ROS ED Constitutional Constitutional ED: Denies chills or fever(s) Eyes Eyes: Denies change in vision ENT ENT ED: Reports other Details: Positive dental pain/jaw pain and facial swelling ; Denies sore throat Cardiovascular Cardiovascular: Denies chest pain Respiratory/Chest Respiratory/Chest: Denies cough or dyspnea Gastrointestinal Gastrointestinal: Denies abdominal pain, diarrhea, nausea or vomiting Genitourinary Genitourinary ED: Denies dysuria Musculoskeletal Musculoskeletal: Denies myalgias or neck pain Integumentary Denies rash Neurologic Neurologic: Denies headache(s) Hematologic/Lymphatic Hematologic/Lymphatic: Reports easy bleeding and easy bruising EXAM Physical Exam Const Vital Signs: 04/04/23 00:57 Temperature 98.5 F Temperature Source Temporal Pulse Rate 71 Respiratory Rate 24 H Blood Pressure 141/77 H Blood Pressure Mean 98 Pulse Ox 93 Positive well nourished, well developed and obese General Appearance ED: well developed Nutritional Appearance: obese HEENT Reports moist mucous membranes HEENT Narrative: Scattered dental caries noted. There is soft tissue swelling along the left upper gingiva tooth #13 with soft tissue swelling and fluctuance consistent with abscess. No active discharge noted No tongue or lip swelling no airway edema or compromise Patient does have soft tissue swelling of the left cheek consistent with underlying dental abscess but no overlying cellulitis noted. Eyes PERRL and EOMs intact bilaterally Neck supple Neck Narrative: Positive anterior cervical lymphadenopathy present Resp normal respiratory effort and clear to auscultation bilaterally Cardio regular rate and regular rhythm Rate: other Other Details: Patient has a midsystolic click consistent with mechanical aortic valve Extremity normal to inspection Neuro oriented x3, CN's II-XII intact bilaterally and no sensory deficits noted Sensorium / Orientation: alert Motor Exam: strength 5/5 throughout Psych mental status grossly normal Skin no rashes or lesions noted Skin Narrative: Soft tissue swelling of the left cheek consistent with dental abscess document above Associated bruising of the extremities consistent with Coumadin use MDM MDM MDM Narrative Medical decision making narrative: Patient presented to the ER slightly hypertensive otherwise with stable vitals. He reported left facial pain and swelling and exam is consistent with a developing dental abscess. As he checked in complaining of jaw pain and does have a history of paroxysmal atrial fibrillation and aortic valve replacement an EKG was obtained. Differential diagnosis is dental abscess versus dental caries versus ANUG versus French's angina. Patient did not have any brawny edema in the submental space and there is no systemic derangement to the gingiva to suggest French angina or ANUG. As patient has localized swelling and pain along the left upper jaw this is dental abscess and not cardiac in nature so there is no need for further cardiac evaluation. We discussed incision and drainage but as he is on Coumadin and has concern he would bleed profusely he would prefer to take antibiotics and wait to see the dentist or oral surgeon for incision and drainage. Therefore patient was placed on clindamycin and as he does not have signs of respiratory distress or airway compromise or systemic infection is otherwise safe for discharge History & Record Review Discussion w/independent historian: Patient and Significant other Discharge Plan Triage Chief Complaint: Chest Pain ED Provider: Josh Lewis Dx/Rx/DC Orders Clinical Impression: Dental abscess, Current use of terminal clerk anticoagulation, Essential (primary) hypertension, History of mechanical aortic valve replacement, Paroxysmal atrial fibrillation Instructions: Dental Abscess Prescriptions: New clindamycin HCl [Cleocin HCl] 300 mg capsule 300 mg PO 4X/DAY 10 Days Qty: 40 0RF oxycodone-acetaminophen [Percocet] 5-325 mg tablet 1 tab PO Q6H PRN (Reason: pain) 3 Days Qty: 12 0RF No Action allopurinol 300 mg tablet 300 mg PO QDAY magnesium oxide 400 mg tablet 400 mg PO QDAY coenzyme Q10 [Co Q-10] 200 mg capsule 200 mg PO BID metformin 500 mg tablet 1,500 mg PO DAILY clindamycin HCl 150 mg capsule 150 mg PO TID Qty: 9 1RF lisinopril 40 mg tablet 40 mg PO BID Qty: 180 4RF warfarin 4 mg tablet 8 mg PO SUSA Protocol: Dose Management Condition: Tuesday Dose/Route: 8 mg Instruction: 2 x 4 mg tablets Condition: Tuesday Dose/Route: 5 mg Instruction: 1 x 5 mg tablet Condition: Tuesday Dose/Route: 5 mg Instruction: 1 x 5 mg tablet Condition: Tuesday Dose/Route: 5 mg Instruction: 1 x 5 mg tablet Condition: Dose/Route: 5 mg Instruction: 1 x 5 mg tablet Condition: Tuesday Dose/Route: 0 mg Instruction: 0 tablets Condition: Tuesday Dose/Route: 8 mg Instruction: 2 x 4 mg tablets Protocol Text: Adjustment Start Date: Tuesday03/25/23 INR Value: 4.3 INR Date: 03/25/23 Recheck Date: 04/08/23 Rx Instructions: 2 tablets S/M/// for 8 mg (takes a 5mg tablet on Tue, Tue, Sun) or otherwise as directed. warfarin 5 mg tablet 5 mg PO MOTUWETHFR Protocol: Dose Management Condition: Tuesday Dose/Route: 8 mg Instruction: 2 x 4 mg tablets Condition: Tuesday Dose/Route: 5 mg Instruction: 1 x 5 mg tablet Condition: Tuesday Dose/Route: 5 mg Instruction: 1 x 5 mg tablet Condition: Tuesday Dose/Route: 5 mg Instruction: 1 x 5 mg tablet Condition: Dose/Route: 5 mg Instruction: 1 x 5 mg tablet Condition: Tuesday Dose/Route: 0 mg Instruction: 0 tablets Condition: Tuesday Dose/Route: 8 mg Instruction: 2 x 4 mg tablets Protocol Text: Adjustment Start Date: Tuesday03/25/23 INR Value: 4.3 INR Date: 03/25/23 Recheck Date: 04/08/23 metoprolol succinate 200 mg tablet extended release 24 hr See Rx Instructions .ROUTE .COMPLEX Qty: 90 3RF Dose Instruction: TAKE 1/2 TABLET TWICE A DAY Rx Instructions: TAKE 1/2 TABLET TWICE A DAY hydrochlorothiazide 25 mg tablet 25 mg PO QDAY Qty: 90 4RF doxazosin [Cardura] 4 mg tablet 4 mg PO DAILY Qty: 90 4RF amlodipine 10 mg tablet 10 mg PO QDAY Qty: 90 4RF pravastatin 40 mg tablet See Rx Instructions .ROUTE .COMPLEX Qty: 90 4RF Dose Instruction: TAKE 1 TABLET EVERY DAY AT BEDTIME Rx Instructions: TAKE 1 TABLET EVERY DAY AT BEDTIME Primary Care Provider: Benjamin Guzman Referrals: Benjamin Guzman DO [Primary Care Provider] - Activity Restrictions/Additional Instructions: Please contact your security strategist or Coumadin clinic to let them know you are on clindamycin/antibiotic as this will potentially alter your Coumadin value. Also contact your dentist and/or oral surgeon as your exam indicates that your abscess will most likely need incised and drained. If you develop worsening symptoms such as fever difficulty breathing or swallowing or have any further concerns please return to the ER for repeat evaluation Disposition Disposition: Home, Self Care Discharge Date/Time: 04/04/23 01:52
[2023-04-04] MEDS: Clindamycin HCl 150 MG Capsule 300 MG PO (01:49)
[2023-04-04] MEDS: Oxycodone/Apap 5/325 Tablet PO (01:49)
--- NOTE | 2023-04-04 03:51 | EKG12_ITS ---
Test Reason : Blood Pressure : / mmHG Vent. Rate : 069 BPM Atrial Rate : 069 BPM P-R Int : 218 ms QRS Dur : 148 ms QT Int : 420 ms P-R-T Axes : 077 -50 070 degrees QTc Int : 450 ms Sinus rhythm with 1st degree A-V block with occasional Premature ventricular complexes Left axis deviation Right bundle branch block Abnormal ECG Confirmed by JENNIFER LEVINE, STU ([id number]), advertising editor TYSON PARKS ([id number]) on 04/11/2023 6:50:07 AM Referred By: Confirmed By:BECCA RODRIGUEZ MD
== END 2023-04-04 01:52 | disposition home or self-care (01) ==
LOC: ED 01:52
PROVIDERS: Emergency Provider Emergency Medicine; PCP Preventive Medicine Occupational Medicine; Visit Provider Emergency Medicine
DX: K04.7 Periapical abscess without sinus (principal); E11.638 Type 2 diabetes mellitus with other oral complications; I48.0 Paroxysmal atrial fibrillation; Z87.891 Personal history of nicotine dependence; Z79.01 Long term (current) use of anticoagulants; E78.5 Hyperlipidemia, unspecified; I10 Essential (primary) hypertension; Z95.2 Presence of prosthetic heart valve; E66.9 Obesity, unspecified; K02.9 Dental caries, unspecified
CPT/HCPCS: 93005; 99283; A4216

== ENCOUNTER 2023-04-08 06:40 | Outpatient (RCR) | payer MEDICARE, OTHER, SELFPAY ==
[2023-03-25 03:12] VITALS: BMI 43.9
[2023-03-25 07:10] LABS: International Normalized Ratio 4.3; Prothrombin Time (Protime)PT. 42.1 SECONDS (11.7-14.9)
[2023-04-05 13:16] LABS: Prothrombin Time (Protime)PT. 42.9 SECONDS (11.7-14.9)
[2023-04-05 13:29] LABS: International Normalized Ratio 4.4
[2023-04-07 09:49] LABS: International Normalized Ratio 3.2
[2023-04-08 08:53] LABS: International Normalized Ratio 2.5; Prothrombin Time (Protime)PT. 27.1 SECONDS (11.7-14.9)
== END 2023-04-24 18:00 | disposition home or self-care (01) ==
LOC: LAB 06:40
PROVIDERS: Family Provider Preventive Medicine Occupational Medicine; PCP Preventive Medicine Occupational Medicine; Referring Provider Internal Medicine Cardiovascular Disease; Visit Provider Internal Medicine Cardiovascular Disease
DX: Z79.01 Long term (current) use of anticoagulants (principal); Z95.2 Presence of prosthetic heart valve
CPT/HCPCS: 36415; 85610

== ENCOUNTER 2023-05-18 08:29 | Outpatient (RCR) | payer MEDICARE, OTHER, SELFPAY ==
[2023-04-24 21:01] VITALS: BMI 43.9
[2023-04-27 08:02] LABS: International Normalized Ratio 2.4; Prothrombin Time (Protime)PT. 26.3 SECONDS (11.7-14.9)
[2023-05-18 09:39] LABS: International Normalized Ratio 3.5; Prothrombin Time (Protime)PT. 35.5 SECONDS (11.7-14.9)
== END 2023-05-18 18:00 | disposition home or self-care (01) ==
LOC: LAB 08:29
PROVIDERS: Family Provider Preventive Medicine Occupational Medicine; PCP Preventive Medicine Occupational Medicine; Referring Provider Internal Medicine Cardiovascular Disease; Visit Provider Internal Medicine Cardiovascular Disease
DX: Z79.01 Long term (current) use of anticoagulants (principal); Z95.2 Presence of prosthetic heart valve; I48.0 Paroxysmal atrial fibrillation
CPT/HCPCS: 36415; 85610

== ENCOUNTER 2023-07-18 06:23 | Outpatient (RCR) | payer MEDICARE, OTHER, SELFPAY ==
[2023-05-25 21:50] VITALS: BMI 43.9
[2023-07-06 10:22] LABS: Prothrombin Time (Protime)PT. 49.8 SECONDS (11.7-14.9)
[2023-07-06 10:32] LABS: International Normalized Ratio 5.5
[2023-07-18 07:20] LABS: International Normalized Ratio 4.4; Prothrombin Time (Protime)PT. 41.4 SECONDS (11.7-14.9)
== END 2023-07-23 18:00 | disposition home or self-care (01) ==
LOC: LAB 06:23
PROVIDERS: Family Provider Preventive Medicine Occupational Medicine; PCP Preventive Medicine Occupational Medicine; Referring Provider Internal Medicine Cardiovascular Disease; Visit Provider Internal Medicine Cardiovascular Disease
DX: Z79.01 Long term (current) use of anticoagulants (principal); Z95.2 Presence of prosthetic heart valve; I48.0 Paroxysmal atrial fibrillation
CPT/HCPCS: 36415; 85610

== ENCOUNTER 2023-07-27 08:38 | Outpatient (RCR) | payer MEDICARE, OTHER, SELFPAY ==
[2023-07-23 22:06] VITALS: BMI 43.9
[2023-07-27 09:55] LABS: International Normalized Ratio 2.5; Prothrombin Time (Protime)PT. 26.8 SECONDS (11.7-14.9)
== END 2023-08-23 22:41 | disposition home or self-care (01) ==
LOC: LAB 08:38
PROVIDERS: Family Provider Preventive Medicine Occupational Medicine; PCP Preventive Medicine Occupational Medicine; Referring Provider Internal Medicine Cardiovascular Disease; Visit Provider Internal Medicine Cardiovascular Disease
DX: Z79.01 Long term (current) use of anticoagulants (principal); Z95.2 Presence of prosthetic heart valve; I48.0 Paroxysmal atrial fibrillation
CPT/HCPCS: 36415; 85610

== ENCOUNTER 2023-08-24 07:49 | Outpatient (RCR) | payer MEDICARE, OTHER, SELFPAY ==
[2023-08-23 22:41] VITALS: BMI 43.9
[2023-08-24 08:33] LABS: Prothrombin Time (Protime)PT. 31.1 SECONDS (11.7-14.9)
== END 2023-09-23 18:00 | disposition home or self-care (01) ==
LOC: LAB 07:49
PROVIDERS: Family Provider Preventive Medicine Occupational Medicine; PCP Preventive Medicine Occupational Medicine; Referring Provider Internal Medicine Cardiovascular Disease; Visit Provider Internal Medicine Cardiovascular Disease
DX: Z79.01 Long term (current) use of anticoagulants (principal); Z95.2 Presence of prosthetic heart valve; I48.0 Paroxysmal atrial fibrillation
CPT/HCPCS: 36415; 85610

== ENCOUNTER 2023-09-28 11:33 | Outpatient (RCR) | payer MEDICARE, OTHER, SELFPAY ==
[2023-09-26 09:20] VITALS: BMI 43.9
[2023-09-28 15:32] LABS: International Normalized Ratio 2.5
== END 2023-09-28 18:00 | disposition home or self-care (01) ==
LOC: LAB 11:33
PROVIDERS: Family Provider Preventive Medicine Occupational Medicine; PCP Preventive Medicine Occupational Medicine; Referring Provider Internal Medicine Cardiovascular Disease; Visit Provider Internal Medicine Cardiovascular Disease
DX: Z79.01 Long term (current) use of anticoagulants (principal); Z95.2 Presence of prosthetic heart valve; I48.0 Paroxysmal atrial fibrillation
CPT/HCPCS: 36415; 85610

== ENCOUNTER 2023-11-21 07:57 | Outpatient (RCR) | payer MEDICARE, OTHER, SELFPAY ==
[2023-10-23 22:15] VITALS: BMI 43.9
[2023-11-21 10:28] LABS: International Normalized Ratio 2.8
== END 2023-11-23 18:00 | disposition home or self-care (01) ==
LOC: MTLAB 07:57
PROVIDERS: Family Provider Preventive Medicine Occupational Medicine; PCP Preventive Medicine Occupational Medicine; Referring Provider Internal Medicine Cardiovascular Disease; Visit Provider Internal Medicine Cardiovascular Disease
DX: Z79.01 Long term (current) use of anticoagulants (principal); Z95.2 Presence of prosthetic heart valve
CPT/HCPCS: 36415; 85610

== ENCOUNTER 2024-01-02 10:42 | Outpatient (RCR) | payer MEDICARE, OTHER, SELFPAY ==
[2023-11-23 23:27] VITALS: BMI 43.9
== END 2024-01-02 18:00 | disposition home or self-care (01) ==
LOC: MTLAB 10:42
PROVIDERS: Family Provider Preventive Medicine Occupational Medicine; PCP Preventive Medicine Occupational Medicine; Referring Provider Internal Medicine Cardiovascular Disease; Visit Provider Internal Medicine Cardiovascular Disease
DX: Z79.01 Long term (current) use of anticoagulants (principal); Z95.2 Presence of prosthetic heart valve; I48.0 Paroxysmal atrial fibrillation
CPT/HCPCS: 36415; 85610

== ENCOUNTER → 2024-01-02 | Outpatient (CLI) | payer MEDICARE, OTHER, SELFPAY ==
--- NOTE | 2024-01-02 09:44 | ECHOD_ITS ---
Version 2 Reason For Study: ASO AO REPAIR/AVR Procedure This was a 2D Doppler, Color Flow transthoracic echocardiogram. Exam performed in department. Left Ventricle Normal LV size. Moderate concentric left ventricular hypertrophy. Left ventricular systolic function is normal. The left ventricular ejection fraction is 55 %. Stage 1 diastolic dysfunction. Right Ventricle Normal RV size. Normal systolic function. Tricuspid Valve Normal tricuspid valve. Mild (1+) tricuspid valve insufficiency. Pulmonary artery systolic pressure is 35 mmHg. Aortic Valve Peak aortic valve gradient 30 mmHg. Mean aortic valve gradient 18 mmHg. Stable appearing mechanical aortic valve apparatus. Pericardium/Pleural No pericardial effusion. MMode/2D Measurements & Calculations LVIDd: 6.1 cm IVSd: 1.5 cm LVOT diam: 2.1 cm LVIDs: 4.1 cm LVPWd: 1.6 cm RVDd: 4.9 cm FS: 33.0 % LVOT area: 3.6 cm2 Ao root diam: 3.1 cm LAV(MOD-bp): 90.4 ml LVAd ap4: 40.0 cm2 LAV(MOD-bp) Indexed: 36.9 ml/m2 LVLd ap4: 8.8 cm LAV(MOD-sp2): 80.8 ml EDV(MOD-sp4): 152.8 ml LAV(MOD-sp4): 95.7 ml EDV(sp4-el): 154.5 ml LVAs ap4: 25.1 cm2 LVLs ap4: 7.9 cm ESV(MOD-sp4): 66.8 ml ESV(sp4-el): 68.1 ml EF(MOD-sp4): 56.2 % EF(sp4-el): 55.9 % LVAd ap2: 34.7 cm2 SV(MOD-sp4): 85.9 ml SV(MOD-sp2): 57.8 ml LVLd ap2: 9.1 cm EDV(MOD-sp2): 114.7 ml EDV(sp2-el): 113.1 ml LVAs ap2: 21.8 cm2 LVLs ap2: 7.0 cm ESV(MOD-sp2): 57.0 ml ESV(sp2-el): 57.5 ml EF(MOD-sp2): 50.3 % SV(sp4-el): 86.4 ml LA dimension(2D): 5.9 cm LA A4 area: 28.5 cm2 RA A4 area: 20.6 cm2 TAPSE: 1.7 cm Time Measurements MV dec time: 0.25 sec Doppler Measurements & Calculations MV E max dax: 85.7 cm/sec Lat Peak E' Dax: 11.2 cm/sec Med Peak E' Dax: 7.9 cm/sec MV A max dax: 102.4 cm/sec E/E' lat: 7.6 E/E' med: 10.8 MV E/A: 0.84 Ao V2 max: 271.1 cm/sec LV V1 max: 101.9 cm/sec MV dec slope: 342.2 cm/sec2 Ao max P.6 mmHg LV V1 max P.2 mmHg Ao V2 mean: 204.8 cm/sec LV V1 mean P.3 mmHg Ao mean P.2 mmHg LV V1 mean: 72.3 cm/sec Ao V2 VTI: 59.3 cm LV V1 VTI: 24.3 cm AV (velocity ratio): 0.41 BRAD(I,D): 1.5 cm2 BRAD(V,D): 1.4 cm2 SV(LVOT): 87.9 ml PA V2 max: 115.3 cm/sec TR max dax: 280.1 cm/sec PA max PG (full): 1.9 mmHg TR max P.4 mmHg ECHO/Echo Complete Interpretation Summary Normal LV size. Moderate concentric left ventricular hypertrophy. Left ventricular systolic function is normal. The left ventricular ejection fraction is 55 %. Stage 1 diastolic dysfunction. Mean aortic valve gradient 18 mmHg. Stable appearing mechanical aortic valve apparatus. Ordering Physician: Iban Rider Referring Physician: MD Benjamin Guzman Performed By: Shagufta Lee RDCS and Student
== END | disposition home or self-care (01) ==
LOC: CVS 09:43
PROVIDERS: PCP Preventive Medicine Occupational Medicine; Referring Provider Nurse Practitioner Family; Visit Provider Nurse Practitioner Family
DX: I48.0 Paroxysmal atrial fibrillation (principal); Z79.01 Long term (current) use of anticoagulants; Z95.2 Presence of prosthetic heart valve; Z98.890 Other specified postprocedural states; Z95.1 Presence of aortocoronary bypass graft; Z86.79 Personal history of other diseases of the circulatory system
CPT/HCPCS: 36415; 85610; 93306

== ENCOUNTER 2024-02-01 12:39 | Outpatient (RCR) | payer MEDICARE, OTHER, SELFPAY ==
[2024-01-24 04:54] VITALS: BMI 43.9
[2024-02-01 15:28] LABS: International Normalized Ratio 2.9; Prothrombin Time (Protime)PT. 30.3 SECONDS (11.7-14.9)
== END 2024-02-01 18:00 | disposition home or self-care (01) ==
LOC: MTLAB 12:39
PROVIDERS: Family Provider Preventive Medicine Occupational Medicine; PCP Preventive Medicine Occupational Medicine; Referring Provider Internal Medicine Cardiovascular Disease; Visit Provider Internal Medicine Cardiovascular Disease
DX: Z79.01 Long term (current) use of anticoagulants (principal); Z95.2 Presence of prosthetic heart valve; I48.0 Paroxysmal atrial fibrillation
CPT/HCPCS: 36415; 85610

== ENCOUNTER 2024-03-14 08:13 | Outpatient (RCR) | payer MEDICARE, OTHER, SELFPAY ==
[2024-02-23 21:13] VITALS: BMI 43.9
[2024-03-14 10:34] LABS: International Normalized Ratio 2.4; Prothrombin Time (Protime)PT. 26.2 SECONDS (11.7-14.9)
== END 2024-03-24 18:00 | disposition home or self-care (01) ==
LOC: MTLAB 08:13
PROVIDERS: Family Provider Preventive Medicine Occupational Medicine; PCP Preventive Medicine Occupational Medicine; Referring Provider Internal Medicine Cardiovascular Disease; Visit Provider Internal Medicine Cardiovascular Disease
DX: Z79.01 Long term (current) use of anticoagulants (principal); Z95.2 Presence of prosthetic heart valve
CPT/HCPCS: 36415; 85610

== ENCOUNTER 2024-04-04 08:54 | Outpatient (RCR) | payer MEDICARE, OTHER, SELFPAY ==
[2024-03-25 02:26] VITALS: BMI 43.9
[2024-04-04 10:29] LABS: International Normalized Ratio 3.1; Prothrombin Time (Protime)PT. 31.8 SECONDS (11.7-14.9)
== END 2024-04-04 18:00 | disposition home or self-care (01) ==
LOC: MTLAB 08:54
PROVIDERS: Family Provider Preventive Medicine Occupational Medicine; PCP Preventive Medicine Occupational Medicine; Referring Provider Internal Medicine Cardiovascular Disease; Visit Provider Internal Medicine Cardiovascular Disease
DX: Z79.01 Long term (current) use of anticoagulants (principal); Z95.2 Presence of prosthetic heart valve
CPT/HCPCS: 36415; 85610

== ENCOUNTER 2024-05-23 09:55 | Outpatient (RCR) | payer MEDICARE, OTHER, SELFPAY ==
[2024-04-25 05:15] VITALS: BMI 43.9
[2024-05-23 12:26] LABS: International Normalized Ratio 2.8
== END 2024-05-23 18:00 | disposition home or self-care (01) ==
LOC: MTLAB 09:55
PROVIDERS: Family Provider Preventive Medicine Occupational Medicine; PCP Preventive Medicine Occupational Medicine; Referring Provider Internal Medicine Cardiovascular Disease; Visit Provider Internal Medicine Cardiovascular Disease
DX: Z79.01 Long term (current) use of anticoagulants (principal); Z95.2 Presence of prosthetic heart valve

== ENCOUNTER 2024-07-11 10:45 | Outpatient (RCR) | payer MEDICARE, OTHER, SELFPAY ==
[2024-05-26 02:25] VITALS: BMI 43.9
[2024-07-11 12:42] LABS: International Normalized Ratio 1.9; Prothrombin Time (Protime)PT. 22.5 SECONDS (11.7-14.9)
== END 2024-07-11 18:00 | disposition home or self-care (01) ==
LOC: MTLAB 10:45
PROVIDERS: Family Provider Preventive Medicine Occupational Medicine; PCP Preventive Medicine Occupational Medicine; Referring Provider Internal Medicine Cardiovascular Disease; Visit Provider Internal Medicine Cardiovascular Disease
DX: Z95.2 Presence of prosthetic heart valve (principal); Z79.01 Long term (current) use of anticoagulants
CPT/HCPCS: 36415; 85610

== ENCOUNTER 2024-08-01 08:43 | Outpatient (RCR) | payer MEDICARE, OTHER, SELFPAY ==
[2024-07-23 23:19] VITALS: BMI 43.9
[2024-08-01 10:44] LABS: International Normalized Ratio 2.4; Prothrombin Time (Protime)PT. 26.3 SECONDS (11.7-14.9)
== END 2024-08-22 18:00 | disposition home or self-care (01) ==
LOC: MTLAB 08:43
PROVIDERS: Family Provider Preventive Medicine Occupational Medicine; PCP Preventive Medicine Occupational Medicine; Referring Provider Internal Medicine Cardiovascular Disease; Visit Provider Internal Medicine Cardiovascular Disease
DX: Z79.01 Long term (current) use of anticoagulants (principal); Z95.2 Presence of prosthetic heart valve
CPT/HCPCS: 36415; 85610

== ENCOUNTER 2024-08-30 07:22 | Outpatient (RCR) | payer MEDICARE, OTHER, SELFPAY ==
[2024-08-23 00:45] VITALS: BMI 43.9
[2024-08-23 10:53] LABS: International Normalized Ratio 2.2
[2024-08-30 11:31] LABS: International Normalized Ratio 2.9; Prothrombin Time (Protime)PT. 31.3 SECONDS (11.7-14.9)
== END 2024-08-30 18:00 | disposition home or self-care (01) ==
LOC: MTLAB 07:22
PROVIDERS: Family Provider Preventive Medicine Occupational Medicine; PCP Preventive Medicine Occupational Medicine; Referring Provider Internal Medicine Cardiovascular Disease; Visit Provider Internal Medicine Cardiovascular Disease
DX: Z79.01 Long term (current) use of anticoagulants (principal); Z95.2 Presence of prosthetic heart valve
CPT/HCPCS: 36415; 85610

== ENCOUNTER 2024-09-24 07:04 | Outpatient (RCR) | payer MEDICARE, OTHER, SELFPAY ==
[2024-09-23 21:11] VITALS: BMI 43.9
[2024-09-24 10:34] LABS: International Normalized Ratio 3.2; Prothrombin Time (Protime)PT. 33.6 SECONDS (11.7-14.9)
== END 2024-09-24 18:00 | disposition home or self-care (01) ==
LOC: MTLAB 07:04
PROVIDERS: Family Provider Preventive Medicine Occupational Medicine; PCP Preventive Medicine Occupational Medicine; Referring Provider Internal Medicine Cardiovascular Disease; Visit Provider Internal Medicine Cardiovascular Disease
DX: Z79.01 Long term (current) use of anticoagulants (principal); Z95.2 Presence of prosthetic heart valve
CPT/HCPCS: 36415; 85610

== ENCOUNTER 2024-11-22 07:07 | Outpatient (RCR) | payer MEDICARE, OTHER, SELFPAY ==
[2024-10-29 10:46] LABS: Prothrombin Time (Protime)PT. 34.4 SECONDS (11.7-14.9)
[2024-10-31 04:07] LABS: PSA, Free 0.81 ng/mL; PSA, Free % 21.2 % (.); PSA, Total Ultrasensitive 3.820 ng/mL (0.000-4.000)
[2024-11-22 10:37] LABS: Prothrombin Time (Protime)PT. 30.6 SECONDS (11.7-14.9)
== END 2024-11-22 18:00 | disposition home or self-care (01) ==
LOC: MTLAB 07:07
PROVIDERS: Family Provider Preventive Medicine Occupational Medicine; PCP Preventive Medicine Occupational Medicine; Referring Provider Urology; Visit Provider Internal Medicine Cardiovascular Disease
DX: Z79.01 Long term (current) use of anticoagulants (principal); Z95.2 Presence of prosthetic heart valve; R97.20 Elevated prostate specific antigen [PSA]
CPT/HCPCS: 36415; 84153; 84154; 85610

== ENCOUNTER 2024-11-29 07:24 | Outpatient (RCR) | payer MEDICARE, OTHER, SELFPAY ==
[2024-11-29 10:40] LABS: Prothrombin Time (Protime)PT. 34.0 SECONDS (11.7-14.9)
== END 2024-11-29 18:00 | disposition home or self-care (01) ==
LOC: MTLAB 07:24
PROVIDERS: Family Provider Preventive Medicine Occupational Medicine; PCP Nurse Practitioner Family; Visit Provider Internal Medicine Cardiovascular Disease
DX: Z79.01 Long term (current) use of anticoagulants (principal); Z95.2 Presence of prosthetic heart valve
CPT/HCPCS: 36415; 85610

== ENCOUNTER → 2024-12-10 | Outpatient (CLI) | payer MEDICARE, OTHER, SELFPAY ==
[2024-12-11 15:08] LABS: PSA, Free 0.67 ng/mL; PSA, Free % 18.4 % (.); PSA, Total Ultrasensitive 3.650 ng/mL (0.000-4.000)
== END | disposition home or self-care (01) ==
LOC: MTLAB 08:03
PROVIDERS: PCP Nurse Practitioner Family; Referring Provider Urology; Visit Provider Urology
DX: R97.20 Elevated prostate specific antigen [PSA] (principal)
CPT/HCPCS: 36415; 84153; 84154

== ENCOUNTER 2025-01-21 07:13 | Outpatient (RCR) | payer MEDICARE, OTHER, SELFPAY ==
[2024-12-25 12:46] LABS: Prothrombin Time (Protime)PT. 34.5 SECONDS (11.7-14.9)
[2025-01-21 10:43] LABS: Prothrombin Time (Protime)PT. 49.4 SECONDS (11.7-14.9)
== END 2025-01-22 18:00 | disposition home or self-care (01) ==
LOC: MTLAB 07:13
PROVIDERS: Family Provider Preventive Medicine Occupational Medicine; PCP Nurse Practitioner Family; Referring Provider Internal Medicine Cardiovascular Disease; Visit Provider Internal Medicine Cardiovascular Disease
DX: Z79.01 Long term (current) use of anticoagulants (principal); Z95.2 Presence of prosthetic heart valve; I48.91 Unspecified atrial fibrillation
CPT/HCPCS: 36415; 85610

== ENCOUNTER 2025-02-18 07:15 | Outpatient (RCR) | payer MEDICARE, OTHER, SELFPAY ==
[2025-01-24 17:48] LABS: Prothrombin Time (Protime)PT. 36.3 SECONDS (11.7-14.9)
[2025-02-01 10:35] LABS: Prothrombin Time (Protime)PT. 23.8 SECONDS (11.7-14.9)
[2025-02-18 10:35] LABS: Prothrombin Time (Protime)PT. 24.8 SECONDS (11.7-14.9)
== END 2025-02-18 18:00 | disposition home or self-care (01) ==
LOC: MTLAB 07:15
PROVIDERS: Family Provider Preventive Medicine Occupational Medicine; PCP Nurse Practitioner Family; Referring Provider Internal Medicine Cardiovascular Disease; Visit Provider Internal Medicine Cardiovascular Disease
DX: Z79.01 Long term (current) use of anticoagulants (principal); Z95.2 Presence of prosthetic heart valve
CPT/HCPCS: 36415; 85610

== ENCOUNTER 2025-02-28 07:58 | Outpatient (RCR) | payer MEDICARE, OTHER, SELFPAY ==
[2025-02-28 10:44] LABS: Prothrombin Time (Protime)PT. 26.5 SECONDS (11.7-14.9)
== END 2025-03-23 18:00 | disposition home or self-care (01) ==
LOC: MTLAB 07:58
PROVIDERS: Family Provider Preventive Medicine Occupational Medicine; PCP Nurse Practitioner Family; Referring Provider Internal Medicine Cardiovascular Disease; Visit Provider Internal Medicine Cardiovascular Disease
DX: Z79.01 Long term (current) use of anticoagulants (principal); Z95.2 Presence of prosthetic heart valve
CPT/HCPCS: 36415; 85610

== ENCOUNTER 2025-04-15 09:43 | Outpatient (RCR) | payer MEDICARE, OTHER, SELFPAY ==
[2025-03-25 10:40] LABS: Prothrombin Time (Protime)PT. 25.0 SECONDS (11.7-14.9)
[2025-04-01 10:35] LABS: Hematocrit 38.9 % (40-54); Hemoglobin 12.9 g/dL (13.0-16.5); Mean Corp Hgb Conc 33.2 g/dL (32-36); Mean Corpuscular Volume 92.6 fL (80-94); Mean Platelet Vol. 11.0 fl (6.2-12.0); Platelet Count 193 K/mm3 (150-450); RBC Distribution Width CV 13.6 % (11.6-14.6); RBC Distribution Width SD 46.0 fl (35.1-43.9); Red Blood Count 4.20 M/mm3 (4.6-6.2); White Blood Count 6.2 K/mm3 (4.4-11.0)
[2025-04-01 10:43] LABS: Prothrombin Time (Protime)PT. 25.1 SECONDS (11.7-14.9)
[2025-04-01 11:06] LABS: Creatinine, Urine (random) 113.00 mg/dL (39.00-259.00); Microalbumin,Random Urine 45.2 mg/L (<20 mg/L)
[2025-04-01 11:08] LABS: AST(SGOT) 20 U/L (<=37); Alanine Aminotransfer ALT/SGPT 11 U/L (<=46); Albumin, Serum 4.2 g/dL (3.4-4.8); Alkaline Phosphatase 70 U/L (40-129); Anion Gap 10 (5-15); BUN 26 mg/dL (4-19); BUN/Creat Ratio 27.6 RATIO (10-20); Calcium,Total 10.0 mg/dL (7.6-11.0); Carbon Dioxide 25.9 mmol/L (21.0-32.0); Chloride 102 mmol/L (98-108); Cholesterol 130 mg/dL (<=200); Globulin 3.2 g/dL (2.2-4.2); Glucose 125 mg/dL (70-99); Low Density Lipoprotein Calc. 75 mg/dL; Potassium 4.2 mmol/L (3.3-5.1); Triglycerides 105 mg/dL; Uric Acid 5.6 mg/dL (3.5-7.2); Very Low Density Lipoprotein 21 mg/dL (5-40); cholesterol:hdl ratio screen 3.63
[2025-04-10 15:46] LABS: Prothrombin Time (Protime)PT. 23.0 SECONDS (11.7-14.9)
[2025-04-15 10:43] LABS: Prothrombin Time (Protime)PT. 28.2 SECONDS (11.7-14.9)
== END 2025-04-15 18:00 | disposition home or self-care (01) ==
LOC: MTLAB 09:43
PROVIDERS: Family Provider Preventive Medicine Occupational Medicine; PCP Nurse Practitioner Family; Referring Provider Internal Medicine Cardiovascular Disease; Visit Provider Internal Medicine Cardiovascular Disease
DX: Z79.01 Long term (current) use of anticoagulants (principal); Z95.2 Presence of prosthetic heart valve; I48.91 Unspecified atrial fibrillation; E78.5 Hyperlipidemia, unspecified; E11.9 Type 2 diabetes mellitus without complications
CPT/HCPCS: 36415; 80053; 80061; 82043; 82570; 83036; 84550; 85027; 85610